=== PATIENT | male | born 1930 | race Caucasian/White ===

== ENCOUNTER 2017-08-30 08:01 | Inpatient (IN) | payer MEDICARE, BC ==
[2017-08-30] MEDS ORDERED: CEFTRIAXONE 1 GM/D5W RTU 1 GM/50 ML RTUPB IV ONE (08:11)
[2017-08-30] MEDS ORDERED: NORMAL SALINE 1000 ML 1,000 ML IV PRN ×3 (08:11→16:56)
--- NOTE | 2017-08-30 08:13 | ER Document Report ---
ED General - General Chief Complaint: Fever Stated Complaint: ALTERED MENTAL STATUS Time Seen by Provider: 08/30/17 08:05 Mode of Arrival: Medic Information source: Patient, Emergency Med Personnel Cannot obtain history due to: Altered mental status Notes: 87-year-old male presents from home altered. Patient was found confused yesterday unresponsive today by family. Upon EMSs arrival patient had a temperature 102.7, satting 83% on room air. They know family is vague on medical history. TRAVEL OUTSIDE OF THE [place] IN LAST 30 DAYS: No - HPI Onset: Yesterday Onset/Duration: Worse Quality of pain: No pain Severity: Severe Pain Level: Denies Associated symptoms: Fever, Shortness of breath, Weakness Exacerbated by: Denies Relieved by: Denies Similar symptoms previously: No Recently seen / treated by doctor: No - Related Data Allergies/Adverse Reactions: No Known Allergies Allergy (Verified 08/30/17 08:27) Past Medical History - Social History Smoking Status: Never Smoker Cigarette use (# per day): No Chew tobacco use (# tins/day): No Smoking Education Provided: No Family History: Reviewed & Not Pertinent - Past Medical History Cardiac Medical History: Reports: Hx Coronary Artery Disease, Hx Hypertension Denies: Hx Heart Attack Pulmonary Medical History: Denies: Hx Asthma, Hx Bronchitis, Hx COPD, Hx Pneumonia Neurological Medical History: Denies: Hx Cerebrovascular Accident, Hx Seizures Musculoskeltal Medical History: Reports Hx Arthritis Past Surgical History: Denies: Hx Pacemaker - Immunizations Hx Diphtheria, Pertussis, Tetanus Vaccination: Yes Review of Systems - Review of Systems Notes: REVIEW OF SYSTEMS: Per EMS and family CONSTITUTIONAL : Admits fever EENT: Denies eye, ear, throat, or mouth pain or symptoms. Denies nasal or sinus congestion or discharge. Denies throat, tongue, or mouth swelling or difficulty swallowing. CARDIOVASCULAR: Denies chest pain. Denies palpitations or racing or irregular heart beat. Denies ankle edema. RESPIRATORY: Admits cough shortness of breath GASTROINTESTINAL: Denies abdominal pain or distention. Denies nausea, vomiting , or diarrhea. Denies blood in vomitus, stools, or per rectum. Denies black, tarry stools. Denies constipation. GENITOURINARY: Denies difficulty urinating, painful urination, burning, frequency, blood in urine, or discharge. MUSCULOSKELETAL: Denies back or neck pain or stiffness. Denies joint pain or swelling. SKIN: Denies rash, lesions or sores. HEMATOLOGIC : Denies easy bruising or bleeding. LYMPHATIC: Denies swollen, enlarged glands. NEUROLOGICAL: Admits confusion PSYCHIATRIC: Denies anxiety or stress. Denies depression, suicidal ideation, or homicidal ideation. ALL OTHER SYSTEMS REVIEWED AND NEGATIVE. Dictation was performed using [employer] voice recognition software PHYSICAL EXAMINATION: GENERAL: Ill appearing pale male, febrile HEAD: Atraumatic, normocephalic. EYES: Pupils equal round and reactive to light, extraocular movements intact, sclera anicteric, conjunctiva are normal. ENT: Nares patent, oropharynx clear without exudates. Moist mucous membranes. NECK: Normal range of motion, supple without lymphadenopathy LUNGS: coarse breath sounds all throughout HEART: tachycardic ABDOMEN: Soft, nontender, nondistended abdomen. No guarding, no rebound. No masses appreciated. Musculoskeletal: Normal range of motion, no pitting or edema. No cyanosis. NEUROLOGICAL: Cranial nerves grossly intact. Normal speech, normal gait. Normal sensory, motor exams PSYCH: Normal mood, normal affect. SKIN: left lower extremity erythema, small open wound of the left medial, cool to touch Physical Exam - Vital signs Vitals: Temp 101.8 F H 08/30/17 08:01 Course - Re-evaluation Re-evalutation: 08/30/17 08:25 Patient is intermittently tachycardic febrile consistent with Sirs criteria, probable pneumonia as a source antibiotics septic workup pending 08/30/17 09:27 pt white count is 26, with acute renal failure, chest xray appears to have pneumonia, pt will be admitted ot the hospitalist service - Vital Signs Vital signs: Temp Pulse Resp BP Pulse Ox 101.8 F H 23 H 116/80 08/30/17 08:01 08/30/17 08:06 08/30/17 08:06 - Laboratory Result Diagrams: 08/30/17 08:10 08/30/17 08:10 Laboratory results interpreted by me: 08/30/17 08/30/17 08/30/17 08:10 08:10 08:10 WBC 25.8 H RBC 3.01 L Hgb 9.5 L Hct 27.9 L RDW 18.6 H Seg Neuts % (Manual) 98 H Band Neutrophils % 2 L Lymphocytes % (Manual) 0 L Monocytes % (Manual) 0 L Abs Neuts (Manual) 25.8 H Abs Lymphs (Manual) 0.0 L Abs Monocytes (Manual) 0.0 L PT 17.2 H Carbon Dioxide 19 L BUN 104 H Creatinine 3.64 H Est GFR ( Amer) 19 L Est GFR (Non-Af Amer) 16 L Glucose 153 H POC Glucose AST 140 H ALT 81 H Alkaline Phosphatase 132 H Urine Protein Urine Ascorbic Acid 08/30/17 08/30/17 08:12 08:36 WBC RBC Hgb Hct RDW Seg Neuts % (Manual) Band Neutrophils % Lymphocytes % (Manual) Monocytes % (Manual) Abs Neuts (Manual) Abs Lymphs (Manual) Abs Monocytes (Manual) PT Carbon Dioxide BUN Creatinine Est GFR ( Amer) Est GFR (Non-Af Amer) Glucose POC Glucose 183 H AST ALT Alkaline Phosphatase Urine Protein 100 H Urine Ascorbic Acid 40 H - Diagnostic Test Radiology reviewed: Image reviewed, Reports reviewed - EKG Interpretation by Al EKG shows normal: Sinus rhythm, Kulm, Intervals, QRS Complexes Rate: Tachycardia Critical Care Note - Critical Care Note Total time excluding time spent on procedures (mins): 34 Comments: 34 minutes of critical care time spent in direct contact evaluating and reevaluating the patient, treating symptoms, reviewing labs and studies and speaking with family and consultants excluding any procedures Discharge - Discharge Clinical Impression: Sepsis Qualifiers: Sepsis type: sepsis due to unspecified organism Qualified Code(s): A41.9 - Sepsis, unspecified organism Pneumonia Qualifiers: Pneumonia type: due to unspecified organism Laterality: left Lung location: lower lobe of lung Qualified Code(s): J18.1 - Lobar pneumonia, unspecified organism Acute renal failure Qualifiers: Acute renal failure type: unspecified Qualified Code(s): N17.9 - Acute kidney failure, unspecified Condition: Fair Disposition: ADMITTED INPATIENT Admitting Provider: Hospitalist Unit Admitted: [facility]
[2017-08-30 08:38] LABS: VENOUS BLOOD BASE EXCESS -3.9 mmol/L; VENOUS BLOOD HCO3 21.6 mmol/L (20-32); VENOUS BLOOD PCO2 41.4 mmHg (35-63); VENOUS BLOOD PH 7.34 (7.30-7.42)
[2017-08-30 08:42] LABS: HEMATOCRIT 27.9 % (37.9-51.0); HEMOGLOBIN 9.5 g/dL (13.5-17.0); MEAN CORPUSCULAR HEMOGLOBIN 31.7 pg (27.0-33.4); MEAN CORPUSCULAR HGB CONC 34.2 g/dL (32.0-36.0); MEAN CORPUSCULAR VOLUME 93 fl (80-97); PLATELET COUNT 165 10^3/uL (150-450); RED BLOOD COUNT 3.01 10^6/uL (4.35-5.55); RED CELL DISTRIBUTION WIDTH 18.6 % (11.5-14.0); WHITE BLOOD COUNT 25.8 10^3/uL (4.0-10.5)
[2017-08-30 08:52] LABS: INTERNATIONAL RATION (INR) 1.32; PROTHROMBIN TIME 17.2 SEC (11.4-15.4)
[2017-08-30 08:57] LABS: ALANINE AMINOTRANSFERASE 81 U/L (21-72); ALBUMIN 3.6 g/dL (3.5-5.0); ALKALINE PHOSPHATASE 132 U/L (38-126); ASPARTATE AMINO TRANSFERASE 140 U/L (17-59); BILIRUBIN,DIRECT 0.3 mg/dL (0.0-0.4); BILIRUBIN,TOTAL 0.7 mg/dL (0.2-1.3); BLOOD UREA NITROGEN 104 mg/dL (7-20); CALCIUM 8.5 mg/dL (8.4-10.2); CHLORIDE 102 mmol/L (98-107); GLUCOSE 153 mg/dL (75-110); POTASSIUM 4.4 mmol/L (3.6-5.0); TOTAL PROTEIN 6.6 g/dL (6.3-8.2)
[2017-08-30 08:58] LABS: ABSOLUTE NEUTROPHILS# (MANUAL) 25.8 10^3/uL (1.7-8.2); BAND NEUTROPHILS % (MANUAL) 2 % (3-5); BASOPHILS % (MANUAL) 0 % (0-2); EOSINOPHILS % (MANUAL) 0 % (0-6); LYMPHOCYTES % (MANUAL) 0 % (13-45); MONOCYTES % (MANUAL) 0 % (3-13); SEGMENTED NEUTROPHILS % (MAN) 98 % (42-78); TOTAL CELLS COUNTED 100
[2017-08-30 08:58] LABS: AMORPHOUS SEDIMENT,URINE TRACE /HPF; APPEARANCE,URINE SLIGHTLY-CLOUDY; BILIRUBIN,URINE NEGATIVE (NEGATIVE); GLUCOSE, URINE NEGATIVE (NEGATIVE); KETONES,URINE NEGATIVE (NEGATIVE); LEUKOCYTE ESTERASE,URINE NEGATIVE (NEGATIVE); NITRITE,URINE NEGATIVE (NEGATIVE); PROTEIN,URINE 100 mg/dL (NEGATIVE); URINE SPECIFIC GRAVITY 1.014; UROBILINOGEN,URINE NEGATIVE mg/dL (<2.0)
[2017-08-30 08:59] LABS: TOXIC GRANULATION SLIGHT; TOXIC VACUOLATION PRESENT
[2017-08-30 08:59] LABS: COLOR,URINE DARK YELLOW
[2017-08-30 09:00] LABS: ANISOCYTOSIS 2+; OVALOCYTES 1+; PLATELET COMMENT ADEQUATE; POIKILOCYTOSIS 1+; SCHISTOCYTES SLIGHT
[2017-08-30 09:06] LABS: CARBON DIOXIDE 19 mmol/L (22-30); SODIUM 139.6 mmol/L (137-145)
[2017-08-30 09:14] LABS: ANION GAP 19 (5-19)
--- NOTE | 2017-08-30 09:37 | RADIOLOGY REPORT (SQ) ---
EXAM DESCRIPTION: CHEST SINGLE VIEW COMPLETED DATE/TIME: 08/30/2017 9:03 am REASON FOR STUDY: bed 11 sepsis protocol COMPARISON: None. EXAM PARAMETERS: NUMBER OF VIEWS: One view. TECHNIQUE: Single frontal radiographic view of the chest acquired. RADIATION DOSE: NA LIMITATIONS: None FINDINGS: LUNGS AND PLEURA: No opacities, masses or pneumothorax. No pleural effusion. MEDIASTINUM AND HILAR STRUCTURES: Mild cardiomegaly. 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 Normal vasculature. BONES: Osteopenic, advanced arthritis right shoulder HARDWARE: None in the chest. OTHER: No other significant finding. IMPRESSION: No acute changes. Mild cardiomegaly, old sternotomy and CABG TECHNICAL DOCUMENTATION: JOB ID: [id number] [employer]- All Rights Reserved
[2017-08-30] MEDS ORDERED: ALBUTEROL SULFATE 0.083% NEB 2.5 MG/3 ML AMPUL NEB PRN (11:08)
[2017-08-30] MEDS ORDERED: ACETAMINOPHEN 325 MG TABLET PO PRN (11:15)
[2017-08-30] MEDS ORDERED: VANCOMYCIN HCL 0 MG in DEXTROSE 5%-WATER 250 ML IV NR (11:30)
--- NOTE | 2017-08-30 11:51 | PDOC H&P ---
History of Present Illness Admission Date/PCP: 08/30/17 09:52 MARISELA GLASS MD Patient complains of: Confusion, fever History of Present Illness: ASHLEY PIZARRO is a 87 year old male with a past medical history significant for hypertension, chronic anemia, BPH, spinal stenosis and peripheral neuropathy who presented to the emergency department by EMS this morning after his family members were unable to wake him. 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 The son reports that by yesterday evening, the patient was slightly confused and more forgetful than is his norm. This morning, the patient's son found him to be difficult to arouse, febrile, and with labored respirations. On retrospect, the patient's son does believe that the patient has had a slightly productive cough for approximately 1 week but has had no other complaints of dyspnea. Upon arrival to the emergency department he was found to have a temperature of 102.7, was hypoxic at 83% on room air, tachycardic and tachypneic. Initial evaluation revealed a WBC of 25.8, hemoglobin 9.5, and creatinine of 3.64. Checks x-ray revealed mild cardiomegaly and no acute processes. He is referred to the hospitalist service for admission. Past Medical History Cardiac Medical History: Reports: Coronary Artery Disease, Hypertension Denies: Myocardial Infarction Pulmonary Medical History: Denies: Asthma, Bronchitis, Chronic Obstructive Pulmonary Disease (COPD), Pneumonia EENT Medical History: Reports: None Neurological Medical History: Denies: Hemorrhagic CVA, Ischemic CVA, Seizures Endocrine Medical History: Reports: None Renal/ Medical History: Reports: None Malignancy Medical History: Reports: None GI Medical History: Reports: None Musculoskeltal Medical History: Reports: Arthritis Skin Medical History: Reports: None Psychiatric Medical History: Reports: None Traumatic Medical History: Reports: None Hematology: Reports: Anemia Infectious Medical History: Reports: None Past Surgical History Past Surgical History: Reports: Coronary Artery Bypass Graft, Orthopedic Surgery - R knee, bilateral hip Denies: Pacemaker Social History Information Source: Relative Lives with: Spouse/Significant other Smoking Status: Former Smoker Frequency of Alcohol Use: None Hx Recreational Drug Use: No Drugs: None Hx Prescription Drug Abuse: No - Advance Directive Resuscitation Status: Full Code Family History Family History: Reviewed & Not Pertinent Parental Family History Reviewed: Yes Children Family History Reviewed: Yes Sibling(s) Family History Reviewed.: Yes Medication/Allergy Home Medications: Amlodipine Besylate [Norvasc 5 mg Tablet] 5 mg PO DAILY 08/30/17 Aspirin [Adult Low Dose Aspirin EC] 81 mg PO DAILY 08/30/17 Carvedilol [Coreg 6.25 mg Tablet] 6.25 mg PO BID 08/30/17 Cetirizine HCl [Zyrtec 10 mg Tablet] 10 mg PO DAILY 08/30/17 Diclofenac Sodium [Voltaren] 75 mg PO DAILY 08/30/17 Finasteride [Proscar 5 mg Tablet] 5 mg PO DAILY 08/30/17 Furosemide [Lasix 40 mg Tablet] 40 mg PO DAILYP PRN 08/30/17 Gabapentin [Neurontin 100 mg Capsule] 100 mg PO Q8 08/30/17 Lisinopril [Zestril] 40 mg PO DAILY 08/30/17 Tamsulosin HCl [Flomax] 0.4 mg PO DAILY 08/30/17 Tramadol HCl [Ultram 50 mg Tablet] 50 mg PO Q6HP PRN 08/30/17 Allergies/Adverse Reactions: No Known Allergies Allergy (Verified 08/30/17 08:27) Review of Systems Review of Systems: Per family Constitutional: PRESENT: as per HPI, fatigue, fever(s), weakness. ABSENT: chills, headache(s), weight gain, weight loss Eyes: ABSENT: visual disturbances Ears: ABSENT: hearing changes Cardiovascular: ABSENT: chest pain, dyspnea on exertion, edema, orthropnea, palpitations Respiratory: PRESENT: cough. ABSENT: hemoptysis Gastrointestinal: ABSENT: abdominal pain, constipation, diarrhea, hematemesis, hematochezia, nausea, vomiting Genitourinary: ABSENT: dysuria, hematuria Musculoskeletal: ABSENT: joint swelling Integumentary: ABSENT: rash, wounds Neurological: PRESENT: confusion. ABSENT: abnormal gait, abnormal speech, dizziness, focal weakness, syncope Psychiatric: ABSENT: anxiety, depression, homidical ideation, suicidal ideation Endocrine: ABSENT: cold intolerance, heat intolerance, polydipsia, polyuria Hematologic/Lymphatic: ABSENT: easy bleeding, easy bruising Physical Exam Vital Signs: Temp Pulse Resp BP Pulse Ox 100.4 F 88 21 H 103/48 L 98 08/30/17 10:42 08/30/17 08:20 08/30/17 11:03 08/30/17 11:03 08/30/17 11:03 General appearance: PRESENT: no acute distress, well-developed, well-nourished Head exam: PRESENT: atraumatic, normocephalic Eye exam: PRESENT: conjunctiva pink, EOMI, PERRLA. ABSENT: scleral icterus Ear exam: PRESENT: normal external ear exam Mouth exam: PRESENT: moist, tongue midline Neck exam: ABSENT: carotid bruit, JVD, lymphadenopathy, thyromegaly Respiratory exam: PRESENT: clear to auscultation katt, rhonchi - Coarse rhonchi throughout, tachypnea, other - Currently on supplemental oxygen via nasal cannula.. ABSENT: rales, wheezes Cardiovascular exam: PRESENT: RRR, tachycardia. ABSENT: diastolic murmur, rubs , systolic murmur Pulses: PRESENT: normal dorsalis pedis pul Vascular exam: PRESENT: normal capillary refill GI/Abdominal exam: PRESENT: normal bowel sounds, soft. ABSENT: distended, guarding, mass, organolmegaly, rebound, tenderness Rectal exam: PRESENT: deferred Extremities exam: PRESENT: full ROM. ABSENT: calf tenderness, clubbing, pedal edema Neurological exam: PRESENT: other - Arousable; does not answer questions or follow commands at this time.. ABSENT: motor sensory deficit Psychiatric exam: ABSENT: homicidal ideation, suicidal ideation Skin exam: PRESENT: dry, erythema - Left lower extremity, warm. ABSENT: cyanosis, intact - Venous stasis ulcers to left lower extremity, rash Results Impressions: Chest X-Ray 08/30/17 08:03 IMPRESSION: No acute changes. Mild cardiomegaly, old sternotomy and CABG Assessment & Plan - Diagnosis (1) Sepsis Qualifiers: Sepsis type: sepsis due to unspecified organism Qualified Code(s): A41.9 - Sepsis, unspecified organism Is this a current diagnosis for this admission?: Yes Plan: Sepsis as evidenced by leukocytosis (25.8), tachycardia (102), tachypnea (23), fever (102.7), and hypotension (94/69) with evidence of cellulitis to left lower extremity and probable pneumonia. The patient will be admitted to [facility] on continuous cardiac telemetry and pulse oximetry. Blood and urine cultures have been obtained. Culture pending. The patient will be empirically started on vancomycin and Zosyn for coverage of pneumonia and cellulitis secondary to chronic venous stasis ulcerations to the left lower extremity. He will receive IV fluid resuscitation. (2) Cellulitis of left lower extremity Is this a current diagnosis for this admission?: Yes Plan: Cellulitis is noted to the left lower extremity related to chronic venous stasis ulcerations. He is noted to have multiple shallow ulcerations to the left lower leg and foot, additionally, he is noted to have small fluid-filled blisters to the left leg. There is +1 pitting edema to the extremity. We will obtain a venous Doppler ultrasound to rule out DVT. He is being empirically placed on vancomycin and Zosyn. We will keep leg elevated. (3) Acute renal failure Qualifiers: Acute renal failure type: unspecified Qualified Code(s): N17.9 - Acute kidney failure, unspecified Is this a current diagnosis for this admission?: Yes Plan: Likely prerenal secondary to intravascular volume depletion in the setting of sepsis. Baseline creatinine of 1.16. The patient is receiving IV fluid resuscitation per sepsis protocols. Will continue to monitor creatinine via serial BMPs. The patient will receive renally dosed vancomycin per pharmacy. Avoid all other nephrotoxic medications. (4) Pneumonia Qualifiers: Pneumonia type: due to unspecified organism Qualified Code(s): J18.1 - Lobar pneumonia, unspecified organism Is this a current diagnosis for this admission?: Yes Plan: Possible pneumonia based on patient history of productive cough, dyspnea, fever. Chest x-ray demonstrated mild cardiomegaly and no acute processes. Likely, pneumonia was not visible secondary to dehydration in the setting of sepsis. The patient will receive vancomycin and Zosyn. He is placed on scheduled duo nebs with albuterol nebulizer treatments as needed. Mucinex twice daily. Supplemental oxygen as needed to keep oxygen saturations greater than 92%. (5) Acute respiratory failure with hypoxia Is this a current diagnosis for this admission?: Yes Plan: The patient was noted to be hypoxic with a saturation of 83% while on room air with tachypnea and tachycardia. His respiratory status has improved and is now stable with supplemental oxygen via nasal cannula. We will continue supportive measures and plan as above. (6) Hypertension Is this a current diagnosis for this admission?: Yes Plan: Hypotensive at current secondary to sepsis. We will continue patient's home medications: Amlodipine and carvedilol with holding parameters. (7) BPH (benign prostatic hyperplasia) Is this a current diagnosis for this admission?: Yes Plan: We will continue home medications: Flomax and finasteride. 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 Plan as above. - Time Time Spent: 50 to 70 Minutes Medications reviewed and adjusted accordingly: Yes - Inpatient Certification Based on my medical assessment, after consideration of the patient's comorbidities, presenting symptoms, or acuity I expect that the services needed warrant INPATIENT care.: Yes I certify that my determination is in accordance with my understanding of Medicare's requirements for reasonable and necessary INPATIENT services [42 CFR 412.3e].: Yes Medical Necessity: Need Close Monitoring Due to Risk of Patient Decompensation, Need For IV Fluids, Need for IV Antibiotics
[2017-08-30] MEDS ORDERED: PIPERACILLIN SODIUM/TAZOBACTAM 3.375 GM in NORMAL SALINE 100 ML IV SCH (12:00)
--- NOTE | 2017-08-30 13:14 | EKG REPORT ---
SEVERITY:- ABNORMAL ECG - SINUS RHYTHM PROBABLE LEFT ATRIAL ABNORMALITY RIGHT BUNDLE BRANCH BLOCK : Confirmed by: Austin Chase MD 30-Aug-2017 13:13:42
[2017-08-30] MEDS ORDERED: VANCOMYCIN HCL 1,000 MG in DEXTROSE 5%-WATER 250 ML IV SCH (14:00)
--- NOTE | 2017-08-30 14:42 | RADIOLOGY REPORT (SQ) ---
EXAM DESCRIPTION: VENOUS UNILATERAL LOWER COMPLETED DATE/TIME: 08/30/2017 2:08 pm REASON FOR STUDY: LLE EDEMA COMPARISON: None. TECHNIQUE: Dynamic and static solis scale and color images acquired of the left leg venous system. Se lected spectral images acquired with additional compression and augmentation maneuvers. The contralat eral common femoral vein and saphenofemoral junction were also imaged. Images stored on PACS. LIMITATIONS: None. FINDINGS: COMMON FEMORAL: Normal phasicity, compression and augmentation. No visualized echogenic ma terial on solis scale. No defects on color images. FEMORAL: Normal compression and augmentation. No visualized echogenic material on solis scale. No defe cts on color images. POPLITEAL: Normal compression, augmentation. No visualized echogenic material on solis scale. No defec ts on color images. CALF VESSELS: Normal compression, augmentation. No visualized echogenic material on solis scale. No de fects on color images. GSV and SSV: GSV harvested. SSV patent. ANY DEEP VENOUS INSUFFICIENCY: Not evaluated. ANY EVIDENCE OF POPLITEAL CYST: 3.1 x 1.3 cm OTHER: No other significant finding. CONTRALATERAL COMMON FEMORAL VEIN AND SAPHENOFEMORAL JUNCTION: Normal phasicity, compression and augmentation. No visualized echogenic material on solis scale. No de fects on color images. IMPRESSION: NO EVIDENCE DVT OR SVT IN THE LEFT LEG. TECHNICAL DOCUMENTATION: JOB ID: [id number] [employer]- All Rights Reserved
[2017-08-30] MEDS: IPRATROPIUM/ALBUTEROL 0.5-2.5 MG/3 ML AMPUL NEB SCH (16:09)
[2017-08-30] MEDS: PIPERACILLIN SODIUM/TAZOBACTAM 2.25 GM in NORMAL SALINE 50 ML IV SCH (17:26)
[2017-08-30] MEDS ORDERED: CARVEDILOL 6.25 MG TABLET PO SCH (18:00)
[2017-08-30] MEDS ORDERED: GUAIFENESIN 600 MG TABLET.SA PO SCH (22:00)
[2017-08-30] MEDS: ACETAMINOPHEN 325 MG SUPP.RECT PR PRN (22:50)
[2017-08-31] MEDS: IPRATROPIUM/ALBUTEROL 0.5-2.5 MG/3 ML AMPUL NEB SCH ×3 (00:04→15:58)
[2017-08-31] MEDS: PIPERACILLIN SODIUM/TAZOBACTAM 2.25 GM in NORMAL SALINE 50 ML IV SCH ×3 (01:24→17:48)
[2017-08-31 06:42] LABS: HEMATOCRIT 24.7 % (37.9-51.0); HEMOGLOBIN 8.5 g/dL (13.5-17.0); MEAN CORPUSCULAR HGB CONC 34.5 g/dL (32.0-36.0); MEAN CORPUSCULAR VOLUME 93 fl (80-97); PLATELET COUNT 125 10^3/uL (150-450); RED BLOOD COUNT 2.66 10^6/uL (4.35-5.55); RED CELL DISTRIBUTION WIDTH 18.3 % (11.5-14.0); WHITE BLOOD COUNT 17.9 10^3/uL (4.0-10.5)
[2017-08-31 06:44] LABS: ANION GAP 15 (5-19); BLOOD UREA NITROGEN 107 mg/dL (7-20); CALCIUM 7.6 mg/dL (8.4-10.2); CARBON DIOXIDE 16 mmol/L (22-30); CHLORIDE 111 mmol/L (98-107); GLUCOSE 154 mg/dL (75-110); POTASSIUM 3.9 mmol/L (3.6-5.0); SODIUM 142.1 mmol/L (137-145)
[2017-08-31] MEDS: AMLODIPINE BESYLATE 5 MG TABLET PO SCH (09:52)
[2017-08-31] MEDS: CETIRIZINE 10 MG TABLET PO SCH (09:52)
[2017-08-31] MEDS: FINASTERIDE 5 MG TABLET PO SCH (09:52)
[2017-08-31] MEDS: CARVEDILOL 6.25 MG TABLET PO SCH ×2 (09:53→22:18)
[2017-08-31] MEDS: ASPIRIN 81 MG TABLET, ENT COATED PO SCH (09:53)
[2017-08-31] MEDS: TAMSULOSIN HCL 0.4 MG CAP.SR.24H PO SCH (09:53)
[2017-08-31] MEDS: GUAIFENESIN 600 MG TABLET.SA PO SCH ×2 (09:53→22:18)
[2017-08-31] MEDS: ENOXAPARIN SODIUM INJ 30 MG/0.3 ML DISP.SYRIN SUBCUT SCH (09:54)
--- NOTE | 2017-08-31 10:31 | PDOC PROGRESS REPORT ---
Subjective Progress Note for:: 08/31/17 Subjective:: Pt is seen on morning rounds as a follow up of sepsis secondary to presumed pneumonia and cellulitis. The patient is found in upright in bed comfortably. He is alert and awake this morning. He tells me that he is in a hospital in [place] but easily corrects to [place]. He does confirm that he has had generalized fatigue, body aches, shortness of breath, and a productive cough for approximately 1 week. He also complains of LLE edema and pain. He was assisted to sitting upright for a drink of water and was observed to have immediate signs worrisome for aspiration. He reports that he often "gets a little choked up." He expresses appreciation for his care and denies questions or concerns at this time. Reason For Visit: PNEUMONIA Physical Exam Vital Signs: Temp Pulse Resp BP Pulse Ox 98.2 F 87 16 119/51 L 98 08/31/17 04:13 08/31/17 08:49 08/31/17 08:49 08/31/17 08:21 08/31/17 08:49 Pulse Oximeter Continuous Start: 08/30/17 11: 40 Freq: RTQ4 Status: Active Document 08/31/17 08:49 [facility] (Rec: 08/31/17 09:35 [facility] [email or web address]) Pulse Oximetry Assessment Oxygen Saturation (92-100) 98 Oxygen Flow Rate (L/min) 2 Oxygen Delivery Method Nasal Cannula Fraction of Inspired Oxygen (FIO2) 28 Equipment Usage Equipment in Use Continuous SpO2 Machine # [id number] Intake & Output 08/30/17 08/31/17 09/01/17 06:59 06:59 06:59 Intake Total 1650 Output Total 925 Balance 725 Weight 88.7 kg General appearance: PRESENT: no acute distress, well-developed, well-nourished Head exam: PRESENT: atraumatic, normocephalic Eye exam: PRESENT: conjunctiva pink, EOMI, PERRLA. ABSENT: scleral icterus Ear exam: PRESENT: normal external ear exam Mouth exam: PRESENT: dry mucosa, tongue midline Neck exam: ABSENT: carotid bruit, JVD, lymphadenopathy, thyromegaly Respiratory exam: PRESENT: clear to auscultation katt, rhonchi - throughout, symmetrical, unlabored. ABSENT: rales, wheezes Cardiovascular exam: PRESENT: RRR, +S1, +S2. ABSENT: diastolic murmur, rubs, systolic murmur, tachycardia Pulses: PRESENT: normal dorsalis pedis pul Vascular exam: PRESENT: normal capillary refill, pallor - Waxy appearance of the left great toe; capillary refill is >3 sec GI/Abdominal exam: PRESENT: normal bowel sounds, soft. ABSENT: distended, guarding, mass, organolmegaly, rebound, tenderness Rectal exam: PRESENT: deferred Extremities exam: PRESENT: full ROM, +1 edema - BLE; improved from yesterday. ABSENT: calf tenderness, clubbing, pedal edema Neurological exam: PRESENT: alert, awake, oriented to person, CN II-XII grossly intact, other - Pleasantly confused, reorientates easily. ABSENT: oriented to place, oriented to time, oriented to situation, motor sensory deficit Psychiatric exam: PRESENT: appropriate affect, normal mood. ABSENT: homicidal ideation, suicidal ideation Skin exam: PRESENT: dry, intact, pallor, warm. ABSENT: cyanosis, rash Results Laboratory Results: 08/31/17 06:04 08/31/17 06:04 08/31/17 08/31/17 06:04 06:04 WBC 17.9 H RBC 2.66 L Hgb 8.5 L Hct 24.7 L MCV 93 MCH 32.0 MCHC 34.5 RDW 18.3 H Plt Count 125 L Sodium 142.1 Potassium 3.9 Chloride 111 H Carbon Dioxide 16 L Anion Gap 15 BUN 107 H Creatinine 3.28 H Est GFR ( Amer) 22 L Est GFR (Non-Af Amer) 18 L Glucose 154 H Calcium 7.6 L Impressions: Venous Doppler Study 08/30/17 00:00 IMPRESSION: NO EVIDENCE DVT OR SVT IN THE LEFT LEG. Chest X-Ray 08/30/17 08:03 IMPRESSION: No acute changes. 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 The pt is alert, though disorientated. The patient has been admitted to [facility] on continuous cardiac telemetry and pulse oximetry. 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 The overall appearance of the LLE is improved; however, the Lt great toe is waxy in appearance and worrisome for chronic venous stasis ulceration w/ osteomyelitis. We will continue IV fluids. (2) Cellulitis of left lower extremity Is this a current diagnosis for this admission?: Yes Plan: Improved appearance. Cellulitis is noted to the left lower extremity related to chronic venous stasis ulcerations. He is noted to have multiple shallow ulcerations to the left lower leg and foot and has small fluid-filled blisters to the left leg. Edema has improved. The Lt great toe is waxy in appearance, cool to touch, and has poor capillary refill. I am concerned about presenting necrosis and/or osteomyelitis related to a chronic wound on the medial portion of the PIP. Will obtain MRI. Venous Doppler ultrasound ruled out DVT. He is currently on vancomycin and Zosyn. We will keep leg elevated. (3) Acute renal failure Qualifiers: Acute renal failure type: unspecified Qualified Code(s): N17.9 - Acute kidney failure, unspecified Is this a current diagnosis for this admission?: Yes Plan: Slight improvement today. Likely prerenal secondary to intravascular volume depletion in the setting of sepsis. Baseline creatinine of 1.16. The patient is receiving IV fluid resuscitation per sepsis protocols. Will continue to monitor creatinine via serial BMPs. The patient will receive renally dosed vancomycin per pharmacy. Avoid all other nephrotoxic medications. (4) Pneumonia Qualifiers: Pneumonia type: due to unspecified organism Qualified Code(s): J18.1 - Lobar pneumonia, unspecified organism Is this a current diagnosis for this admission?: Yes Plan: Possible pneumonia based on patient history of productive cough, dyspnea, fever. Chest x-ray demonstrated mild cardiomegaly and no acute processes. Likely, pneumonia was not visible secondary to dehydration in the setting of sepsis. The patient will receive vancomycin and Zosyn. He is placed on scheduled duo nebs with albuterol nebulizer treatments as needed. Mucinex twice daily. Supplemental oxygen as needed to keep oxygen saturations greater than 92%. (5) Acute respiratory failure with hypoxia Is this a current diagnosis for this admission?: Yes Plan: Improved; he is now maintaining oxygen saturations on supplemental oxygen via nasal canula. The patient was noted to be hypoxic with a saturation of 83% while on room air with tachypnea and tachycardia. We will continue supportive measures and plan as above. (6) Hypertension Is this a current diagnosis for this admission?: Yes Plan: Hypotensive at current secondary to sepsis. We will continue patient's home medications: Amlodipine and carvedilol with holding parameters. (7) BPH (benign prostatic hyperplasia) Is this a current diagnosis for this admission?: Yes Plan: We will continue home medications: Flomax and finasteride. 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 Plan as above. - Time Time Spent with patient: 25-34 minutes Medications reviewed and adjusted accordingly: Yes
[2017-08-31] MEDS ORDERED: NORMAL SALINE 1000 ML 500 ML IV ONE (11:03)
[2017-08-31] MEDS ORDERED: DIAZEPAM 2 MG TABLET PO PRN (11:04)
[2017-08-31] MEDS ORDERED: HALOPERIDOL LACTATE INJ 5 MG/1 ML VIAL IV PRN (11:41)
[2017-08-31] MEDS ORDERED: GLUCAGON,HUMAN RECOMB 1 MG INJ SUBCUT PRN (15:15)
[2017-08-31] MEDS ORDERED: DEXTROSE 50%-WATER 25 GM/50 ML DISP.SYRIN IV PRN ×2 (15:15)
[2017-08-31] MEDS ORDERED: DEXTROSE 40% GEL 15 GM TUBE PO PRN ×2 (15:15)
[2017-08-31 15:56] LABS: ARTERIAL BLOOD H2CO3 0.89 mmol/L (1.05-1.35); ARTERIAL BLOOD HCO3 17.2 mmol/L (20-26); ARTERIAL BLOOD O2 SATURATION 99.5 % (94-98); ARTERIAL BLOOD PCO2 29.7 mmHg (35-45); ARTERIAL BLOOD PH 7.38 (7.35-7.45); ARTERIAL BLOOD PO2 220.3 mmHg (80-100); ARTERIAL BLOOD TOTAL CO2 18.1 mmol/L (23-27)
[2017-08-31 15:57] LABS: ARTERIAL BLOOD FIO2 100%
--- NOTE | 2017-08-31 17:52 | RADIOLOGY REPORT (SQ) ---
EXAM DESCRIPTION: CT CHEST WITHOUT COMPLETED DATE/TIME: 08/31/2017 5:30 pm REASON FOR STUDY: dyspnea, cough, ? aspirtion COMPARISON: Chest x-ray 08/30/2017 TECHNIQUE: CT scan performed of the chest without intravenous contrast. Images reviewed with lung, soft tissue and bone windows. Reconstructed coronal and sagittal MPR images reviewed. All images st ored on PACS. All CT scanners at this facility use dose modulation, iterative reconstruction, and/or weight based d osing when appropriate to reduce radiation dose to as low as reasonably achievable (ALARA). [facility]: Dose Right [facility]: CareDose [facility]: Dose Right [facility]: Teradose 4D [facility]: [employer] Technologies RADIATION DOSE: CT Rad equipment meets quality standard of care and radiation dose reduction techniq ues were employed. CTDIvol: 24.4 mGy. DLP: 1042 mGy-cm. mGy. LIMITATIONS: No technical limitations. FINDINGS: LUNGS AND PLEURA: Mild subsegmental atelectasis in the right lower lobe posteriorly. Mini mal right pleural effusion. HILAR AND MEDIASTINAL STRUCTURES: No identified masses or abnormal nodes. No obvious aneurysm. HEART AND VASCULAR STRUCTURES: No aneurysm. No pericardial effusion. Extensive coronary atheroscler osis. UPPER ABDOMEN: Cholelithiasis. Extensive perinephric stranding. THYROID AND OTHER SOFT TISSUES: No masses. No adenopathy. BONES: No significant finding. HARDWARE: Sternotomy wires. Surgical clips. OTHER: No other significant findings. IMPRESSION: Minimal right pleural effusion. Mild subsegmental atelectasis. Coronary atherosclerosi s. Perinephric stranding. Is there any clinical evidence pyelonephritis? Cholelithiasis. TECHNICAL DOCUMENTATION: JOB ID: [id number] Quality ID # [id number]: Final reports with documentation of one or more dose reduction techniques (e.g., Au tomated exposure control, adjustment of the mA and/or kV according to patient size, use of iterative reconstruction technique) 2010 [employer]- All Rights Reserved
--- NOTE | 2017-08-31 17:59 | EKG REPORT ---
SEVERITY:- ABNORMAL ECG - ATRIAL FIBRILLATION, V-RATE 70-94 RIGHT BUNDLE BRANCH BLOCK : Confirmed by: Austin Chase MD 31-Aug-2017 17:58:42
[2017-09-01] MEDS: IPRATROPIUM/ALBUTEROL 0.5-2.5 MG/3 ML AMPUL NEB SCH ×3 (00:04→16:16)
[2017-09-01] MEDS: PIPERACILLIN SODIUM/TAZOBACTAM 2.25 GM in NORMAL SALINE 50 ML IV SCH ×3 (01:37→17:29)
[2017-09-01] MEDS: NORMAL SALINE 1000 ML 1,000 ML IV PRN ×2 (03:25→16:57)
[2017-09-01 05:44] LABS: HEMATOCRIT 27.7 % (37.9-51.0); HEMOGLOBIN 9.4 g/dL (13.5-17.0); MEAN CORPUSCULAR HEMOGLOBIN 31.2 pg (27.0-33.4); MEAN CORPUSCULAR HGB CONC 33.8 g/dL (32.0-36.0); MEAN CORPUSCULAR VOLUME 92 fl (80-97); PLATELET COUNT 170 10^3/uL (150-450); RED CELL DISTRIBUTION WIDTH 18.5 % (11.5-14.0); WHITE BLOOD COUNT 16.1 10^3/uL (4.0-10.5)
[2017-09-01 05:49] LABS: ANION GAP 16 (5-19); BLOOD UREA NITROGEN 108 mg/dL (7-20); CARBON DIOXIDE 15 mmol/L (22-30); CHLORIDE 116 mmol/L (98-107); GLUCOSE 152 mg/dL (75-110); POTASSIUM 3.8 mmol/L (3.6-5.0); SODIUM 146.6 mmol/L (137-145)
[2017-09-01] MEDS: ENOXAPARIN SODIUM INJ 30 MG/0.3 ML DISP.SYRIN SUBCUT SCH (10:13)
[2017-09-01] MEDS: TAMSULOSIN HCL 0.4 MG CAP.SR.24H PO SCH (10:22)
[2017-09-01] MEDS: FINASTERIDE 5 MG TABLET PO SCH (10:22)
[2017-09-01] MEDS: CARVEDILOL 6.25 MG TABLET PO SCH ×2 (10:22→22:19)
[2017-09-01] MEDS: CETIRIZINE 10 MG TABLET PO SCH (10:22)
[2017-09-01] MEDS: AMLODIPINE BESYLATE 5 MG TABLET PO SCH (10:22)
[2017-09-01] MEDS: GUAIFENESIN 600 MG TABLET.SA PO SCH ×2 (10:22→22:19)
[2017-09-01] MEDS: ASPIRIN 81 MG TABLET, ENT COATED PO SCH (10:22)
[2017-09-01] MEDS ORDERED: VANCOMYCIN HCL 1,000 MG in DEXTROSE 5%-WATER 250 ML IV ONE (12:30)
--- NOTE | 2017-09-01 13:50 | XCELERA REPORT ---
[address] [address] Transthoracic Echocardiogram Report Name: ASHLEY PIZARRO Age: 87 yrs Gender: Male : 1930 Patient Status: Inpatient Patient Location: [address] [place] [address] Study Date: 09/01/2017 11:04 AM Height: 72 in Weight: 195 lb BSA: 2.1 m2 Procedure: A two-dimensional transthoracic echocardiogram with color flow and Doppler was performed. Study Quality: Technically suboptimal. The study was technically difficult with many images being suboptimal in quality. Reason For Study: CHF exacerbation/sepsis History: CHF exacerbation/sepsis. Ordering Physician: NICHOLAS MCMAHON Performed By: Cailin Vidal Interpretation Summary The left ventricle is normal in size. There is normal left ventricular wall thickness. LV EF is 60% Left ventricular systolic function is normal. The left ventricular wall motion is normal. There is no thrombus. The right ventricle is not well visualized secondary to technical limitations Right atrium not well visualized secondary to technical limitations The left atrial size is normal. There is no evidence of mitral valve prolapse. There is no vegetation seen on the mitral valve. There is no mitral valve stenosis. There is a trace to mild amount of mitral regurgitation There is no aortic valvular vegetation. There is aortic Sclerosis without stenosis. No aortic regurgitation is present. There is no tricuspid stenosis. There is a mild amount of tricuspid regurgitation There is mild pulmonary hypertension by echo RVSP is 46 mm of hg , with RA mean of 10. There is no pericardial effusion. MMode/2D Measurements & Calculations RVDd: 4.6 cm LVIDd: 4.6 cm FS: 29.3 % Ao root diam: 2.8 cm IVSd: 0.98 cm LVIDs: 3.3 cm EDV(Teich): 97.8 ml LVPWd: 0.96 cm ESV(Teich): 42.9 ml Ao root area: 5.9 cm2 EF(Teich): 56.2 % LA dimension: 3.7 cm Doppler Measurements & Calculations MV E max desean: MV P1/2t max desean: Ao V2 max: LV V1 max P.4 cm/sec 130.3 cm/sec 178.1 cm/sec 3.1 mmHg MV P1/2t: 64.9 msec Ao max PG: LV V1 max: 12.7 mmHg 88.4 cm/sec MVA(P1/2t): 3.4 cm2 MV dec slope: 588.3 cm/sec2 PA V2 max: TR max desean: 87.4 cm/sec 300.7 cm/sec PA max P.1 mmHgTR max P.2 mmHg Left Ventricle The left ventricle is normal in size. There is normal left ventricular wall thickness. LV EF is 60%. Left ventricular systolic function is normal. LV diastolic function could not be adequately assessed due to atrial fibrilation. The left ventricular wall motion is normal. There is no thrombus. Right Ventricle The right ventricle is not well visualized secondary to technical limitations. Atria Right atrium not well visualized secondary to technical limitations. The left atrial size is normal. Mitral Valve There is mild mitral leaflet calcification. There is no evidence of mitral valve prolapse. There is no vegetation seen on the mitral valve. There is no mitral valve stenosis. There is a trace to mild amount of mitral regurgitation. Aortic Valve There is no aortic valvular vegetation. There is aortic Sclerosis without stenosis. No aortic regurgitation is present. Tricuspid Valve There is no tricuspid stenosis. There is a mild amount of tricuspid regurgitation. There is mild pulmonary hypertension by echo. RVSP is 46 mm of hg , with RA mean of 10. Pulmonic Valve There is no pulmonic valvular stenosis. There is no pulmonic valvular regurgitation. Great Vessels The aortic root is normal size. Effusions There is no pericardial effusion. : NICHOLAS MCMAHON > Katelyn Lopez
--- NOTE | 2017-09-01 14:10 | PDOC PROGRESS REPORT ---
Subjective Progress Note for:: 09/01/17 Subjective:: Pt is seen on morning rounds as a follow up of sepsis secondary to presumed pneumonia and cellulitis. The patient is resting in bed on supplemental oxygen via nasal cannula. He does wake briefly after a sternal rub and briefly answers questions. He denies chest pain, difficulty breathing, and cough. The patient's son is present for the exam. All questions and concerns were addressed. Reason For Visit: PNEUMONIA Physical Exam Vital Signs: Temp Pulse Resp BP Pulse Ox 97.5 F 90 20 155/74 H 100 09/01/17 12:08 09/01/17 12:08 09/01/17 12:08 09/01/17 12:08 09/01/17 12:08 Pulse Oximeter Continuous Start: 08/30/17 11: 40 Freq: RTQ4 Status: Active Document 09/01/17 12:00 [facility] (Rec: 09/01/17 12:04 [facility] [email or web address]) Pulse Oximetry Assessment Oxygen Saturation (92-100) 100 Oxygen Flow Rate (L/min) 2 Oxygen Delivery Method Nasal Cannula Equipment Usage Equipment in Use Continuous SpO2 Machine # [id number] Intake & Output 08/31/17 09/01/17 09/02/17 06:59 06:59 06:59 Intake Total 1650 3210 Output Total 925 1725 425 Balance 725 1485 -425 Weight 88.7 kg 88.6 kg General appearance: PRESENT: no acute distress, well-developed, well-nourished, other - acutely ill appearing Head exam: PRESENT: atraumatic, normocephalic Eye exam: PRESENT: conjunctiva pink, EOMI, PERRLA. ABSENT: scleral icterus Ear exam: PRESENT: normal external ear exam Mouth exam: PRESENT: moist, tongue midline Neck exam: ABSENT: carotid bruit, JVD, lymphadenopathy, thyromegaly Respiratory exam: PRESENT: crackles - Bibasilar, symmetrical, tachypnea, unlabored. ABSENT: rales, rhonchi, wheezes Cardiovascular exam: PRESENT: RRR, other - +JVD. ABSENT: diastolic murmur, rubs , systolic murmur Pulses: PRESENT: normal dorsalis pedis pul Vascular exam: PRESENT: normal capillary refill GI/Abdominal exam: PRESENT: normal bowel sounds, soft. ABSENT: distended, guarding, mass, organolmegaly, rebound, tenderness Rectal exam: PRESENT: deferred Extremities exam: PRESENT: full ROM. ABSENT: calf tenderness, clubbing, pedal edema Neurological exam: PRESENT: oriented to place, other - Arousable. Orientated to self.. ABSENT: motor sensory deficit Psychiatric exam: PRESENT: normal mood. ABSENT: homicidal ideation, suicidal ideation Skin exam: PRESENT: dry, erythema - LLE, warm, other - Waxy appearance of Lt great toe; poor capillary refill. ABSENT: cyanosis, intact, rash Results Laboratory Results: 09/01/17 04:55 09/01/17 04:55 08/31/17 09/01/17 09/01/17 15:40 04:55 04:55 WBC 16.1 H RBC 3.00 L Hgb 9.4 L Hct 27.7 L MCV 92 MCH 31.2 MCHC 33.8 RDW 18.5 H Plt Count 170 Carbonic Acid 0.89 L HCO3/H2CO3 Ratio 19:1 ABG pH 7.38 ABG pCO2 29.7 L ABG pO2 220.3 H ABG HCO3 17.2 L ABG O2 Saturation 99.5 H ABG Base Excess -7.0 FiO2 100% Sodium 146.6 H Potassium 3.8 Chloride 116 H Carbon Dioxide 15 L Anion Gap 16 BUN 108 H Creatinine 3.07 H Est GFR ( Amer) 23 L Est GFR (Non-Af Amer) 19 L Glucose 152 H Calcium 8.0 L Impressions: Venous Doppler Study 08/30/17 00:00 IMPRESSION: NO EVIDENCE DVT OR SVT IN THE LEFT LEG. Chest X-Ray 08/30/17 08:03 IMPRESSION: No acute changes. 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 Mild subsegmental atelectasis. Coronary atherosclerosis. Perinephric stranding. Is there any clinical evidence pyelonephritis? Cholelithiasis. Assessment & Plan - Diagnosis (1) Sepsis Qualifiers: Sepsis type: sepsis due to unspecified organism Qualified Code(s): A41.9 - Sepsis, unspecified organism Is this a current diagnosis for this admission?: Yes Plan: Improving; leukocytosis is trending down, his blood pressures are stable and he is no longer tachycardic. The pt is arousable. The patient has been admitted to [facility] on continuous cardiac telemetry and pulse oximetry. Blood cultures: S. aureus Urine culture: No growth at 2 days The patient will continue on vancomycin and Zosyn for coverage of pneumonia and cellulitis secondary to chronic venous stasis ulcerations to the left lower extremity. The overall appearance of the LLE is improved; however, the Lt great toe is waxy in appearance and worrisome for chronic venous stasis ulceration w/ osteomyelitis vs developing necrosis of the toe. We will continue IV fluids. (2) Cellulitis of left lower extremity Is this a current diagnosis for this admission?: Yes Plan: Improved appearance. Cellulitis is noted to the left lower extremity related to chronic venous stasis ulcerations. He is noted to have multiple shallow ulcerations to the left lower leg and foot and has small fluid-filled blisters to the left leg. Edema has improved. The Lt great toe is waxy in appearance, cool to touch, and has poor capillary refill. I am concerned about presenting necrosis and/or osteomyelitis related to a chronic wound on the medial portion of the PIP. Pt was unable to tolerate lying still for MRI. Venous Doppler ultrasound ruled out DVT. He is currently on vancomycin and Zosyn. We will keep leg elevated. Will consult surgery; appreciate Dr. Hidalgo' consultation and recommendations. (3) Acute renal failure Qualifiers: Acute renal failure type: unspecified Qualified Code(s): N17.9 - Acute kidney failure, unspecified Is this a current diagnosis for this admission?: Yes Plan: Slight improvement today (3.64--> 3.28--> 3.07) Likely prerenal secondary to intravascular volume depletion in the setting of sepsis. Baseline creatinine of 1.16. The patient is receiving IV fluid resuscitation per sepsis protocols. Will continue to monitor creatinine via serial BMPs. The patient will receive renally dosed vancomycin per pharmacy. Avoid all other nephrotoxic medications. (4) Acute respiratory failure with hypoxia Is this a current diagnosis for this admission?: Yes Plan: Improved; he is now maintaining oxygen saturations on supplemental oxygen via nasal canula. The patient was noted to be hypoxic with a saturation of 83% while on room air with tachypnea and tachycardia. Chest CT was obtained; no evidence of pneumonia on imagining. His acute worsening may have been positional (pt was supine for bath) or possibly aspiration as the patient was noted by nursing staff to have difficulty tolerating thin liquids. He will be supported with oxygen via nasal cannula per protocol, BiPAP nightly and as needed, duo nebs as needed, Mucinex twice daily. The patient will also be provided Lasix today for gentle diuresis secondary to volume overload. (5) Hypertension Is this a current diagnosis for this admission?: Yes Plan: Hypotensive at current secondary to sepsis. We will continue patient's home medications: Amlodipine and carvedilol with holding parameters. (6) BPH (benign prostatic hyperplasia) Is this a current diagnosis for this admission?: Yes Plan: We will continue home medications: Flomax and finasteride. (7) Venous stasis dermatitis of left lower extremity Is this a current diagnosis for this admission?: Yes Plan: Complicated by cellulitis. Plan as above. (8) Pneumonia Qualifiers: Pneumonia type: due to unspecified organism Qualified Code(s): J18.1 - Lobar pneumonia, unspecified organism Is this a current diagnosis for this admission?: Yes Plan: I do not believe that the pt has pneumonia. He will be continued on antibiotics , however, for treatment of his cellulitis. Chest CT demonstrated minimal right pleural effusion, mild subsegmental atelectasis, coronary artherosclerosis, and perinephric stranding. No evidence of pneumonia was seen. Chest x-ray demonstrated mild cardiomegaly and no acute processes. Likely, pneumonia was not visible secondary to dehydration in the setting of sepsis. (9) CHF (congestive heart failure) Qualifiers: Congestive heart failure chronicity: unspecified congestive heart failure chronicity Is this a current diagnosis for this admission?: Yes Plan: The patient is noted to have slight volume overload as noted by fine bibasilar crackles [place] [id number]. Echocardiogram pending. Will provide furosemide for gentle diuresis. - Time Time Spent with patient: 35 or more minutes Medications reviewed and adjusted accordingly: Yes
[2017-09-01] MEDS ORDERED: LIDOCAINE 1% INJ-PF (10 MG/ML) 30 ML SDV ONE (15:26)
[2017-09-01] MEDS: FUROSEMIDE INJ/PF 20 MG/2 ML SDV IV SCH (17:28)
--- NOTE | 2017-09-01 19:44 | Operative Report ---
Operative Report DATE OF SURGERY: 09/01/17 PREOPERATIVE DIAGNOSIS: Ischemic Left foot POSTOPERATIVE DIAGNOSIS: same OPERATION: Superficial Debridement Dorsal surface left foot SURGEON: TIMUR BUTLER ANESTHESIA: Local TISSUE REMOVED OR ALTERED: fluid, and skin COMPLICATIONS: none ESTIMATED BLOOD LOSS: scant INTRAOPERATIVE FINDINGS: see below PROCEDURE: Time out conducted; Dorsal aspect of the left foot was prepped and draped with Betadine. Skin was anesthetized with 1% lidocaine plain. The exfoliating skin over the dorsum of the left foot over the first and second metatarsals with a 15 blade. The dermis was intact. Multiple aspirations were made of the sub-cutaneous tissue with no release of pus. Specimen sent for Gram stain culture and sensitivity. Dressing applied to the left foot. Impression is progressive ischemia of the left foot an 87-year-old male with multiple comorbidities Recommendations: We will continue to discuss with patient's son, who is patient's healthcare power of bar turner goals of aggressiveness of care, and decision making and timing regarding left leg amputation.
--- NOTE | 2017-09-01 20:03 | CONSULTATION REPORT E ---
Consultation Report NAME: ASHLEY PIZARRO : 1930 AGE: 87Y DATE: 09/01/2017 ROOM: 325 A TO: TIMUR BUTLER M.D. FROM: Requesting Physician CHIEF COMPLAINT: Left foot pain, infection. REPORT OF CONSULTATION: The patient is an 87-year-old white male admitted to the hospital service 2 days ago because of fall, altered mental status, and generalized weakness. The working diagnosis was sepsis of unclear etiology. The patient was started on empiric antibiotic therapy. He had an element of renal failure, peripheral vascular disease as well. Unfortunately he has not improved clinically. The condition of his left foot in terms of chronic ulcers and more recently acute ischemic has progressed, surgery is consulted. PAST MEDICAL/SURGICAL HISTORY: Extensive, including coronary artery bypass grafting with vein, saphenous, harvested from the left lower extremity. He also has had right knee replacement. REVIEW OF SYSTEMS: Complete review of systems can be found in his records. According to the patient's son, the patient had been ambulating with a walker for the last 10 months following a hip repair back in September. He was developing some problems with ischemic changes to his left foot. However, since this hospitalization his clinical condition is seriously deteriorating. PHYSICAL EXAMINATION: The patient is examined on the third floor of [facility]. He is in moderate distress. He does not follow commands consistently. He has some facial grimace and irregularity. Exam focused on the lower extremities. The patient does have palpable femoral pulses bilaterally. Scar anterior aspect right knee consistent with total knee replacement; there is a saphenous vein harvest site scar left leg. There are multiple chronic ulcers to the left forefoot around the first, second metatarsal region. There is exfoliating skin and puffiness to the dorsum of the left foot with some dark-blue discoloration underneath. Toes show chronic fungal infection. LABORATORY PROFILE: Significant for a persisting white blood cell count of 16,000; hemoglobin of 9.4. Electrolytes show a bicarb of 15, BUN and creatinine of 23 and 3 respectively. IMPRESSION: Sepsis of uncertain etiology, however, suspect patient's ischemic left foot becoming increasingly problematic in this 87-year-old, full code, white male now at bedrest without significant clinical improvement over 48 hours at [facility] despite IV fluids, intravenous antibiotics, etcetera. RECOMMENDATIONS: 1. I spoke at length with the patient's son, who I know personally from previous encounters with patient's . The patient's overall condition has deteriorated. I am pessimistic about this patient's potential for rehabilitation given his advanced age and his failure to improve over the last few days. 2. As a bedside maneuver will debride and aspirate the surface of the dorsal aspect of the left foot, send material if available for culture, etcetera. This was done, see dictated note; results fairly unimpressive. 3. I believe the patient's progressive ischemic left foot is going to be his downfall this hospitalization. I explained this to the patient's son. Because of the patient's advanced age and poor likelihood of rehabilitation, he is not a candidate for limb salvage, therefore, a left above the knee amputation would be most appropriate operation. I discussed the fact that my colleague, surgicalist for the weekend, will be reassessing the patient in the next 12-18 hours to render an opinion regarding surgical option and timing thereof. DICTATING PHYSICIAN: TIMUR BUTLER M.D. [id number] PHY#: [id number] ID: [id number] JOB#: [id number] ACCT: [id number] cc:TIMUR BUTLER M.D. > MTDD
[2017-09-01] MEDS ORDERED: GLUCAGON,HUMAN RECOMB 1 MG INJ IM PRN (21:21)
[2017-09-01] MEDS ORDERED: DEXTROSE 50%-WATER SYRINGE 25 GM/50 ML DOSE IV PRN (21:21)
[2017-09-01] MEDS ORDERED: DEXTROSE 40% GEL 15 GM TUBE PO PRN (21:21)
[2017-09-01] MEDS ORDERED: DEXTROSE 40% GEL 15 GM TUBE X 2 PO PRN (21:21)
[2017-09-01] MEDS ORDERED: DEXTROSE 50%-WATER SYRINGE 12.5 GM/25 ML DOSE IV PRN (21:21)
[2017-09-01] MEDS: INSULIN LISPRO 100 UNIT/ML 3 ML VIAL SUBCUT PRN (23:32)
[2017-09-02] MEDS: IPRATROPIUM/ALBUTEROL 0.5-2.5 MG/3 ML AMPUL NEB SCH ×4 (00:38→23:52)
[2017-09-02] MEDS: PIPERACILLIN SODIUM/TAZOBACTAM 2.25 GM in NORMAL SALINE 50 ML IV SCH ×3 (01:28→16:55)
[2017-09-02] MEDS: INSULIN LISPRO 100 UNIT/ML 3 ML VIAL SUBCUT PRN (03:37)
[2017-09-02] MEDS ORDERED: INSULIN LISPRO 100 UNIT/ML 3 ML VIAL SUBCUT PRN (04:14)
[2017-09-02 05:10] LABS: HEMOGLOBIN 8.7 g/dL (13.5-17.0); MEAN CORPUSCULAR HEMOGLOBIN 31.1 pg (27.0-33.4); MEAN CORPUSCULAR HGB CONC 33.7 g/dL (32.0-36.0); MEAN CORPUSCULAR VOLUME 92 fl (80-97); PLATELET COUNT 192 10^3/uL (150-450); RED BLOOD COUNT 2.81 10^6/uL (4.35-5.55); WHITE BLOOD COUNT 18.8 10^3/uL (4.0-10.5)
[2017-09-02 05:33] LABS: ANION GAP 17 (5-19); BLOOD UREA NITROGEN 93 mg/dL (7-20); CALCIUM 8.3 mg/dL (8.4-10.2); CARBON DIOXIDE 15 mmol/L (22-30); CHLORIDE 120 mmol/L (98-107); GLUCOSE 178 mg/dL (75-110); POTASSIUM 3.1 mmol/L (3.6-5.0); SODIUM 152.4 mmol/L (137-145)
[2017-09-02] MEDS: FUROSEMIDE INJ/PF 20 MG/2 ML SDV IV SCH (05:44)
[2017-09-02] MEDS ORDERED: 1/2 NORMAL SALINE 1,000 ML IV PRN ×2 (07:34→16:29)
[2017-09-02] MEDS: POTASSI CL 20 MEQ/50 ML RIDER 20 MEQ/50 ML RTUPB IV SCH ×4 (08:22→14:18)
[2017-09-02] MEDS: FINASTERIDE 5 MG TABLET PO SCH (09:34)
[2017-09-02] MEDS: TAMSULOSIN HCL 0.4 MG CAP.SR.24H PO SCH (09:34)
[2017-09-02] MEDS: GUAIFENESIN 600 MG TABLET.SA PO SCH ×2 (09:34→21:56)
[2017-09-02] MEDS: ASPIRIN 81 MG TABLET, ENT COATED PO SCH (09:34)
[2017-09-02] MEDS: AMLODIPINE BESYLATE 5 MG TABLET PO SCH (09:34)
[2017-09-02] MEDS: CARVEDILOL 6.25 MG TABLET PO SCH ×2 (09:34→21:56)
[2017-09-02] MEDS: CETIRIZINE 10 MG TABLET PO SCH (09:34)
--- NOTE | 2017-09-02 10:11 | PDOC PROGRESS REPORT ---
Subjective Subjective:: patient not verbally responsive Reason For Visit: PNEUMONIA Physical Exam Vital Signs: Temp Pulse Resp BP Pulse Ox 98.7 F 108 H 18 159/68 H 98 09/02/17 07:20 09/02/17 08:28 09/02/17 08:28 09/02/17 07:20 09/02/17 08:28 Pulse Oximeter Continuous Start: 08/30/17 11: 40 Freq: RTQ4 Status: Active Document 09/02/17 08:28 TPO (Rec: 09/02/17 08:35 TPO [email or web address]) Pulse Oximetry Assessment Oxygen Saturation (92-100) 98 Oxygen Flow Rate (L/min) 2 Oxygen Delivery Method Nasal Cannula Fraction of Inspired Oxygen (FIO2) 28 Equipment Usage Equipment in Use Continuous SpO2 Machine # 8 Intake & Output 09/01/17 09/02/17 09/03/17 06:59 06:59 06:59 Intake Total 3210 3350 Output Total 1725 1650 Balance 1485 1700 Weight 88.6 kg 88.9 kg Extremities exam: PRESENT: other - left leg ischmia of the forefoot Results Laboratory Results: 09/02/17 04:58 09/02/17 04:58 09/02/17 09/02/17 04:58 04:58 WBC 18.8 H RBC 2.81 L Hgb 8.7 L Hct 26.0 L MCV 92 MCH 31.1 MCHC 33.7 RDW 19.0 H Plt Count 192 Sodium 152.4 H Potassium 3.1 L Chloride 120 H Carbon Dioxide 15 L Anion Gap 17 BUN 93 H Creatinine 2.53 H Est GFR ( Amer) 29 L Est GFR (Non-Af Amer) 24 L Glucose 178 H Calcium 8.3 L Impressions: Venous Doppler Study 08/30/17 00:00 IMPRESSION: NO EVIDENCE DVT OR SVT IN THE LEFT LEG. Chest X-Ray 08/30/17 08:03 IMPRESSION: No acute changes. 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 Mild subsegmental atelectasis. Coronary atherosclerosis. Perinephric stranding. Is there any clinical evidence pyelonephritis? Cholelithiasis. Assessment & Plan - Plan Summary Plan Summary: IV antibiotics may need below need amputation, based on patients family e's decision regarding extent of care and code status
[2017-09-02] MEDS: ENOXAPARIN SODIUM INJ 30 MG/0.3 ML DISP.SYRIN SUBCUT SCH (10:39)
[2017-09-02 11:24] LABS: ANION GAP 15 (5-19); BLOOD UREA NITROGEN 91 mg/dL (7-20); CALCIUM 8.3 mg/dL (8.4-10.2); CARBON DIOXIDE 19 mmol/L (22-30); CHLORIDE 120 mmol/L (98-107); GLUCOSE 177 mg/dL (75-110); POTASSIUM 3.1 mmol/L (3.6-5.0); SODIUM 154.3 mmol/L (137-145)
[2017-09-02] MEDS ORDERED: DEXTROSE 5%-WATER 1000 ML 1,000 ML IV PRN (16:33)
--- NOTE | 2017-09-02 16:50 | PDOC PROGRESS REPORT ---
Subjective Progress Note for:: 09/02/17 Subjective:: Pt is seen on morning rounds as a follow up of severe sepsis secondary to presumed pneumonia and cellulitis. The patient is resting in bed on supplemental oxygen via nasal cannula. He does wake briefly after a sternal rub and answers questions. He denies chest pain, difficulty breathing, and cough. He is asked about his advance care planning; he states that he is not discussed his end-of-life wishes with his family members. He does not respond to questions about whether or not he would want to be a DNR. I am uncertain if he did not understand the question or was unprepared to answer it. When asked who he would want to make decisions on his behalf when he cannot speak to us he points to his son, stating "Kevin". The patient's son is present for the exam. All questions and concerns were addressed. Reason For Visit: PNEUMONIA Physical Exam Vital Signs: Temp Pulse Resp BP Pulse Ox 98.7 F 98 18 158/64 H 96 09/02/17 12:01 09/02/17 15:56 09/02/17 15:56 09/02/17 12:01 09/02/17 15:56 Pulse Oximeter Continuous Start: 08/30/17 11: 40 Freq: RTQ4 Status: Active Document 09/02/17 15:56 [facility] [place] (Rec: 09/02/17 16:03 TPO [email or web address]) Pulse Oximetry Assessment Oxygen Saturation (92-100) 96 Oxygen Flow Rate (L/min) 2 Oxygen Delivery Method Nasal Cannula Fraction of Inspired Oxygen (FIO2) 28 Equipment Usage Equipment in Use Continuous SpO2 Machine # 8 Intake & Output 09/01/17 09/02/17 09/03/17 06:59 06:59 06:59 Intake Total 3210 3350 0 Output Total 1725 1650 1350 Balance 1485 1700 -1350 Weight 88.6 kg 88.9 kg General appearance: PRESENT: hard of hearing, mild distress, well-developed, well-nourished Head exam: PRESENT: atraumatic, normocephalic Eye exam: PRESENT: conjunctiva pink, EOMI, PERRLA. ABSENT: scleral icterus Ear exam: PRESENT: normal external ear exam Mouth exam: PRESENT: moist, tongue midline Neck exam: ABSENT: carotid bruit, JVD, lymphadenopathy, thyromegaly Respiratory exam: PRESENT: clear to auscultation katt, rhonchi - throughout, symmetrical, tachypnea. ABSENT: rales, wheezes Cardiovascular exam: PRESENT: RRR, other - +JVD. ABSENT: diastolic murmur, rubs , systolic murmur Pulses: PRESENT: normal dorsalis pedis pul Vascular exam: PRESENT: normal capillary refill GI/Abdominal exam: PRESENT: normal bowel sounds, soft. ABSENT: distended, guarding, mass, organolmegaly, rebound, tenderness Rectal exam: PRESENT: deferred Extremities exam: PRESENT: full ROM. ABSENT: calf tenderness, clubbing, pedal edema Neurological exam: PRESENT: oriented to person, oriented to place, other - Arousable; briefly answers questions. ABSENT: oriented to time, oriented to situation, motor sensory deficit Psychiatric exam: PRESENT: appropriate affect, normal mood. ABSENT: homicidal ideation, suicidal ideation Skin exam: PRESENT: dry, erythema - LLE; improved. Lt great toe not visualized; clean dry dressing in place, warm. ABSENT: cyanosis, intact, rash Results Laboratory Results: 09/02/17 04:58 09/02/17 10:55 09/02/17 09/02/17 09/02/17 04:58 04:58 10:55 WBC 18.8 H RBC 2.81 L Hgb 8.7 L Hct 26.0 L MCV 92 MCH 31.1 MCHC 33.7 RDW 19.0 H Plt Count 192 Sodium 152.4 H 154.3 H Potassium 3.1 L 3.1 L Chloride 120 H 120 H Carbon Dioxide 15 L 19 L Anion Gap 17 15 BUN 93 H 91 H Creatinine 2.53 H 2.41 H Est GFR ( Amer) 29 L 31 L Est GFR (Non-Af Amer) 24 L 26 L Glucose 178 H 177 H Calcium 8.3 L 8.3 L Impressions: Venous Doppler Study 08/30/17 00:00 IMPRESSION: NO EVIDENCE DVT OR SVT IN THE LEFT LEG. Chest X-Ray 08/30/17 08:03 IMPRESSION: No acute changes. 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 Mild subsegmental atelectasis. Coronary atherosclerosis. Perinephric stranding. Is there any clinical evidence pyelonephritis? Cholelithiasis. Assessment & Plan - Diagnosis (1) Sepsis Qualifiers: Sepsis type: methicillin susceptible Staphylococcus aureus Qualified Code(s ): A41.01 - Sepsis due to Methicillin susceptible Staphylococcus aureus Is this a current diagnosis for this admission?: Yes Plan: Slight improvement; blood pressures are stable and he is no longer tachycardic. The pt is arousable. The patient has been admitted to [facility] on continuous cardiac telemetry and pulse oximetry. Blood cultures: S. aureus Urine culture: Gram positive cocci The patient will continue on vancomycin and Zosyn for coverage of pneumonia and cellulitis secondary to chronic venous stasis ulcerations to the left lower extremity. The overall appearance of the LLE is improved; however, the Lt great toe is waxy in appearance and worrisome for developing necrosis of the toe. We will continue IV fluids. (2) Cellulitis of left lower extremity Is this a current diagnosis for this admission?: Yes Plan: Improved appearance. Cellulitis is noted to the left lower extremity related to chronic venous stasis ulcerations. He is noted to have multiple shallow ulcerations to the left lower leg and foot and has small fluid-filled blisters to the left leg. Edema has improved. The Lt great toe is waxy in appearance, cool to touch, and has poor capillary refill. I am concerned about presenting necrosis and/or osteomyelitis related to a chronic wound on the medial portion of the PIP. Pt was unable to tolerate lying still for MRI. Venous Doppler ultrasound ruled out DVT. He is currently on vancomycin and Zosyn. We will keep leg elevated. Will consult surgery; appreciate consultation and recommendations. -- Surgery recommends a BKA; family is hesitant to proceed with surgery at this time due to post-surgical quality of life concerns. (3) Acute renal failure Qualifiers: Acute renal failure type: unspecified Qualified Code(s): N17.9 - Acute kidney failure, unspecified Is this a current diagnosis for this admission?: Yes Plan: Improved (3.64--> 3.28--> 3.07--> 2.41) Likely prerenal secondary to intravascular volume depletion in the setting of sepsis. Baseline creatinine of 1.16. The patient is receiving IV fluid resuscitation per sepsis protocols. Will continue to monitor creatinine via serial BMPs. The patient will receive renally dosed vancomycin per pharmacy. Avoid all other nephrotoxic medications. (4) Acute respiratory failure with hypoxia Is this a current diagnosis for this admission?: Yes Plan: Improved; he is now maintaining oxygen saturations on supplemental oxygen via nasal canula. The patient was noted to be hypoxic with a saturation of 83% while on room air with tachypnea and tachycardia. Chest CT was obtained; no evidence of pneumonia on imagining. His acute worsening may have been positional (pt was supine for bath) or possibly aspiration as the patient was noted by nursing staff to have difficulty tolerating thin liquids. Will make NPO and place aspirations precautions. He will be supported with oxygen via nasal cannula per protocol, BiPAP nightly and as needed, duo nebs as needed, Mucinex twice daily. Continue Lasix for gentle diuresis secondary to volume overload. (5) Hypertension Is this a current diagnosis for this admission?: Yes Plan: Hypotensive at current secondary to sepsis. We will continue patient's home medications: Amlodipine and carvedilol with holding parameters. (6) BPH (benign prostatic hyperplasia) Is this a current diagnosis for this admission?: Yes Plan: We will continue home medications: Flomax and finasteride. (7) Venous stasis dermatitis of left lower extremity Is this a current diagnosis for this admission?: Yes Plan: Complicated by cellulitis. Plan as above. (8) Pneumonia Qualifiers: Pneumonia type: due to unspecified organism Qualified Code(s): J18.1 - Lobar pneumonia, unspecified organism Is this a current diagnosis for this admission?: Yes Plan: Sputum culture: gram positive cocci. He will be continued on Zosyn and Vancomycin. Chest CT demonstrated minimal right pleural effusion, mild subsegmental atelectasis, coronary artherosclerosis, and perinephric stranding. No evidence of pneumonia was seen. Chest x-ray demonstrated mild cardiomegaly and no acute processes. Likely, pneumonia was not visible secondary to dehydration in the setting of sepsis. (9) CHF (congestive heart failure) Qualifiers: Congestive heart failure chronicity: unspecified congestive heart failure chronicity Is this a current diagnosis for this admission?: Yes Plan: The patient is noted to have volume overload as noted by fine bibasilar crackles [place] [address]. Echocardiogram: LV EF 60% Will provide furosemide for gentle diuresis. Trend daily weights. (10) Hypernatremia Is this a current diagnosis for this admission?: Yes Plan: Secondary to poor p.o. intake and intractable losses. We will monitor with BMPs every 6. Patient is currently receiving D5-1/4NS at 100 ml/hr. (11) Goals of care, counseling/discussion Is this a current diagnosis for this admission?: Yes Plan: The patient's son, Kevin Chaves, has been identified by the patient as his proxy healthcare decision maker. At this time, the patient remains a full code. The son states that the patient's is not comfortable with hospice/comfort care measures as that would be "giving up." He intends to present DNR with continued antibiotic and supportive therapies, but withholding surgery, to allow the "natural course" as an option to the patient's this afternoon. - Time Time Spent with patient: 35 or more minutes Medications reviewed and adjusted accordingly: Yes
[2017-09-02] MEDS ORDERED: DEXTROSE 5%-1/4 NORMAL SALINE 1,000 ML IV ONE (17:30)
[2017-09-02] MEDS: ACETAMINOPHEN 325 MG SUPP.RECT PR PRN (17:46)
[2017-09-02 19:48] LABS: ANION GAP 15 (5-19); BLOOD UREA NITROGEN 87 mg/dL (7-20); CALCIUM 8.5 mg/dL (8.4-10.2); CARBON DIOXIDE 16 mmol/L (22-30); CHLORIDE 124 mmol/L (98-107); GLUCOSE 154 mg/dL (75-110); POTASSIUM 3.6 mmol/L (3.6-5.0)
[2017-09-02 19:49] LABS: ANION GAP 16 (5-19); BLOOD UREA NITROGEN 83 mg/dL (7-20); CALCIUM 8.4 mg/dL (8.4-10.2); CARBON DIOXIDE 18 mmol/L (22-30); CHLORIDE 123 mmol/L (98-107); GLUCOSE 158 mg/dL (75-110); POTASSIUM 3.4 mmol/L (3.6-5.0); SODIUM 156.7 mmol/L (137-145)
[2017-09-02] MEDS ORDERED: FUROSEMIDE INJ/PF 20 MG/2 ML SDV IV SCH (22:00)
[2017-09-03] MEDS ORDERED: VANCOMYCIN HCL 1,000 MG in DEXTROSE 5%-WATER 250 ML IV SCH ×2
[2017-09-03] MEDS: PIPERACILLIN SODIUM/TAZOBACTAM 2.25 GM in NORMAL SALINE 50 ML IV SCH (02:22)
[2017-09-03 06:47] LABS: HEMATOCRIT 25.4 % (37.9-51.0); HEMOGLOBIN 8.5 g/dL (13.5-17.0); MEAN CORPUSCULAR HEMOGLOBIN 31.1 pg (27.0-33.4); MEAN CORPUSCULAR HGB CONC 33.4 g/dL (32.0-36.0); MEAN CORPUSCULAR VOLUME 93 fl (80-97); PLATELET COUNT 176 10^3/uL (150-450); RED BLOOD COUNT 2.72 10^6/uL (4.35-5.55); RED CELL DISTRIBUTION WIDTH 18.5 % (11.5-14.0)
[2017-09-03 07:09] LABS: ALBUMIN 2.8 g/dL (3.5-5.0); ANION GAP 15 (5-19); BLOOD UREA NITROGEN 77 mg/dL (7-20); CALCIUM 8.7 mg/dL (8.4-10.2); CARBON DIOXIDE 19 mmol/L (22-30); CHLORIDE 123 mmol/L (98-107); GLUCOSE 200 mg/dL (75-110); SODIUM 156.5 mmol/L (137-145); TOTAL PROTEIN 5.9 g/dL (6.3-8.2)
[2017-09-03 07:10] LABS: ALANINE AMINOTRANSFERASE 67 U/L (21-72); ALKALINE PHOSPHATASE 106 U/L (38-126); ASPARTATE AMINO TRANSFERASE 65 U/L (17-59); BILIRUBIN,DIRECT 0.4 mg/dL (0.0-0.4)
[2017-09-03] MEDS ORDERED: POTASSI CL 20 MEQ/50 ML RIDER 20 MEQ/50 ML RTUPB IV SCH (07:23)
[2017-09-03] MEDS: IPRATROPIUM/ALBUTEROL 0.5-2.5 MG/3 ML AMPUL NEB SCH (08:00)
[2017-09-03 08:12] LABS: ABSOLUTE LYMPHOCYTES# (MANUAL) 1.3 10^3/uL (0.5-4.7); ABSOLUTE MONOCYTES # (MANUAL) 0.6 10^3/uL (0.1-1.4); ABSOLUTE NEUTROPHILS# (MANUAL) 17.1 10^3/uL (1.7-8.2); BAND NEUTROPHILS % (MANUAL) 3 % (3-5); BASOPHILS % (MANUAL) 0 % (0-2); EOSINOPHILS % (MANUAL) 0 % (0-6); LYMPHOCYTES % (MANUAL) 6 % (13-45); MONOCYTES % (MANUAL) 3 % (3-13); SEGMENTED NEUTROPHILS % (MAN) 87 % (42-78); TOTAL CELLS COUNTED 100
[2017-09-03 08:14] LABS: ANISOCYTOSIS 2+; BURR CELLS SLIGHT; HELMET CELLS SLIGHT; HYPOCHROMASIA 1+; OVALOCYTES SLIGHT; PLATELET COMMENT ADEQUATE; POIKILOCYTOSIS 3+; TARGET CELLS SLIGHT; TEAR DROP CELLS SLIGHT
[2017-09-03] MEDS: GUAIFENESIN 600 MG TABLET.SA PO SCH (09:03)
[2017-09-03] MEDS: ASPIRIN 81 MG TABLET, ENT COATED PO SCH (09:03)
[2017-09-03] MEDS: CARVEDILOL 6.25 MG TABLET PO SCH (09:03)
[2017-09-03] MEDS: FINASTERIDE 5 MG TABLET PO SCH (09:03)
[2017-09-03] MEDS: CETIRIZINE 10 MG TABLET PO SCH (09:03)
[2017-09-03] MEDS: AMLODIPINE BESYLATE 5 MG TABLET PO SCH (09:03)
[2017-09-03] MEDS: TAMSULOSIN HCL 0.4 MG CAP.SR.24H PO SCH (09:03)
[2017-09-03] MEDS ORDERED: MORPHINE SULFATE 60 MG/60 ML RTUINJ IV PRN (09:28)
--- NOTE | 2017-09-03 10:19 | PDOC PROGRESS REPORT ---
Subjective Progress Note for:: 09/03/17 Subjective:: Patient is unresponsive to painful stimuli Reason For Visit: PNEUMONIA Physical Exam Vital Signs: Temp Pulse Resp BP Pulse Ox 98.9 F 89 24 H 150/84 H 94 09/03/17 07:48 09/03/17 07:48 09/03/17 07:48 09/03/17 07:48 09/03/17 09:08 Pulse Oximeter Continuous Start: 08/30/17 11: 40 Freq: RTQ4 Status: Active Document 09/03/17 09:08 TPO (Rec: 09/03/17 09:09 TPO [email or web address]) Pulse Oximetry Assessment Oxygen Saturation (92-100) 94 Oxygen Flow Rate (L/min) 2 Oxygen Delivery Method Nasal Cannula Fraction of Inspired Oxygen (FIO2) 28 Equipment Usage Equipment in Use Continuous SpO2 Machine # 8 Intake & Output 09/02/17 09/03/17 09/04/17 06:59 06:59 06:59 Intake Total 3350 3391 Output Total 1650 2700 Balance 1700 691 Weight 88.9 kg 87.6 kg General appearance: PRESENT: no acute distress Eye exam: PRESENT: conjunctiva pink. ABSENT: scleral icterus Mouth exam: PRESENT: moist, tongue midline Neck exam: ABSENT: JVD Respiratory exam: PRESENT: rhonchi. ABSENT: rales, wheezes Cardiovascular exam: PRESENT: RRR. ABSENT: diastolic murmur, rubs, systolic murmur GI/Abdominal exam: PRESENT: normal bowel sounds, soft. ABSENT: distended, guarding, mass, organolmegaly, rebound, tenderness Extremities exam: PRESENT: other - Erythema around the great toe. ABSENT: calf tenderness, clubbing, pedal edema Neurological exam: PRESENT: altered Psychiatric exam: PRESENT: flat affect Skin exam: PRESENT: other - Dusky left great toe and first MTP area. Results Laboratory Results: 09/03/17 05:25 09/03/17 05:25 09/02/17 09/02/17 09/02/17 10:55 17:17 19:05 WBC RBC Hgb Hct MCV MCH MCHC RDW Plt Count Seg Neutrophils % Lymphocytes % Monocytes % Eosinophils % Basophils % Absolute Neutrophils Absolute Lymphocytes Absolute Monocytes Absolute Eosinophils Absolute Basophils Sodium 154.3 H 155.0 H 156.7 H Potassium 3.1 L 3.6 3.4 L Chloride 120 H 124 H 123 H Carbon Dioxide 19 L 16 L 18 L Anion Gap 15 15 16 BUN 91 H 87 H 83 H Creatinine 2.41 H 2.28 H 2.31 H Est GFR ( Amer) 31 L 33 L 32 L Est GFR (Non-Af Amer) 26 L 27 L 27 L Glucose 177 H 154 H 158 H Calcium 8.3 L 8.5 8.4 Total Bilirubin AST ALT Alkaline Phosphatase Total Protein Albumin 09/03/17 09/03/17 05:25 05:25 WBC 19.0 H RBC 2.72 L Hgb 8.5 L Hct 25.4 L MCV 93 MCH 31.1 MCHC 33.4 RDW 18.5 H Plt Count 176 Seg Neutrophils % Not Reportable Lymphocytes % Not Reportable Monocytes % Not Reportable Eosinophils % Not Reportable Basophils % Not Reportable Absolute Neutrophils Not Reportable Absolute Lymphocytes Not Reportable Absolute Monocytes Not Reportable Absolute Eosinophils Not Reportable Absolute Basophils Not Reportable Sodium 156.5 H Potassium 3.0 L* Chloride 123 H Carbon Dioxide 19 L Anion Gap 15 BUN 77 H Creatinine 2.06 H Est GFR ( Amer) 37 L Est GFR (Non-Af Amer) 31 L Glucose 200 H Calcium 8.7 Total Bilirubin 1.0 AST 65 H ALT 67 Alkaline Phosphatase 106 Total Protein 5.9 L Albumin 2.8 L Impressions: Venous Doppler Study 08/30/17 00:00 IMPRESSION: NO EVIDENCE DVT OR SVT IN THE LEFT LEG. Chest X-Ray 08/30/17 08:03 IMPRESSION: No acute changes. 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 Mild subsegmental atelectasis. Coronary atherosclerosis. Perinephric stranding. Is there any clinical evidence pyelonephritis? Cholelithiasis. Assessment & Plan - Diagnosis (1) Sepsis Qualifiers: Sepsis type: methicillin susceptible Staphylococcus aureus Qualified Code(s ): A41.01 - Sepsis due to Methicillin susceptible Staphylococcus aureus Is this a current diagnosis for this admission?: Yes Plan: Most likely combination of pneumonia and cellulitis of the foot and probable osteomyelitis. The case was discussed with the son and the . We have agreed to change the patient comfort care and just to comfort measures. All of medications will be stopped except for the morphine. (2) Pneumonia Qualifiers: Pneumonia type: due to unspecified organism Qualified Code(s): J18.1 - Lobar pneumonia, unspecified organism Is this a current diagnosis for this admission?: Yes Plan: Comfort Care only (3) Venous stasis dermatitis of left lower extremity Is this a current diagnosis for this admission?: Yes (4) Acute respiratory failure with hypoxia Is this a current diagnosis for this admission?: Yes (5) BPH (benign prostatic hyperplasia) Is this a current diagnosis for this admission?: Yes (6) CHF (congestive heart failure) Qualifiers: Congestive heart failure chronicity: unspecified congestive heart failure chronicity Is this a current diagnosis for this admission?: Yes (7) Hypernatremia Is this a current diagnosis for this admission?: Yes (8) Hypertension Is this a current diagnosis for this admission?: Yes (9) Acute renal failure Qualifiers: Acute renal failure type: unspecified Qualified Code(s): N17.9 - Acute kidney failure, unspecified Is this a current diagnosis for this admission?: Yes - Time Time Spent with patient: 25-34 minutes - Plan Summary Plan Summary: We will consult hospice and made comfort care only.
--- NOTE | 2017-09-03 14:07 | PDOC PROGRESS REPORT ---
Subjective Progress Note for:: 09/03/17 Subjective:: Patient not verbally communicating Reason For Visit: PNEUMONIA Physical Exam Vital Signs: Temp Pulse Resp BP Pulse Ox 98.9 F 89 24 H 150/84 H 94 09/03/17 07:48 09/03/17 07:48 09/03/17 07:48 09/03/17 07:48 09/03/17 12:06 Pulse Oximeter Continuous Start: 08/30/17 11: 40 Freq: RTQ4 Status: Active Document 09/03/17 12:06 TPO (Rec: 09/03/17 12:07 TPO [email or web address]) Pulse Oximetry Assessment Oxygen Saturation (92-100) 94 Oxygen Flow Rate (L/min) 2 Oxygen Delivery Method Nasal Cannula Fraction of Inspired Oxygen (FIO2) 28 Equipment Usage Equipment in Use Continuous SpO2 Machine # 8 Intake & Output 09/02/17 09/03/17 09/04/17 06:59 06:59 06:59 Intake Total 3350 3391 Output Total 1650 2700 Balance 1700 691 Weight 88.9 kg 87.6 kg Extremities exam: PRESENT: other - Left foot Ischemic changes - slightly improved No signs of any infection Conservative managemnt Results Laboratory Results: 09/03/17 05:25 09/03/17 05:25 09/02/17 09/02/17 09/03/17 17:17 19:05 05:25 WBC 19.0 H RBC 2.72 L Hgb 8.5 L Hct 25.4 L MCV 93 MCH 31.1 MCHC 33.4 RDW 18.5 H Plt Count 176 Seg Neutrophils % Not Reportable Lymphocytes % Not Reportable Monocytes % Not Reportable Eosinophils % Not Reportable Basophils % Not Reportable Absolute Neutrophils Not Reportable Absolute Lymphocytes Not Reportable Absolute Monocytes Not Reportable Absolute Eosinophils Not Reportable Absolute Basophils Not Reportable Sodium 155.0 H 156.7 H Potassium 3.6 3.4 L Chloride 124 H 123 H Carbon Dioxide 16 L 18 L Anion Gap 15 16 BUN 87 H 83 H Creatinine 2.28 H 2.31 H Est GFR ( Amer) 33 L 32 L Est GFR (Non-Af Amer) 27 L 27 L Glucose 154 H 158 H Calcium 8.5 8.4 Total Bilirubin AST ALT Alkaline Phosphatase Total Protein Albumin 09/03/17 05:25 WBC RBC Hgb Hct MCV MCH MCHC RDW Plt Count Seg Neutrophils % Lymphocytes % Monocytes % Eosinophils % Basophils % Absolute Neutrophils Absolute Lymphocytes Absolute Monocytes Absolute Eosinophils Absolute Basophils Sodium 156.5 H Potassium 3.0 L* Chloride 123 H Carbon Dioxide 19 L Anion Gap 15 BUN 77 H Creatinine 2.06 H Est GFR ( Amer) 37 L Est GFR (Non-Af Amer) 31 L Glucose 200 H Calcium 8.7 Total Bilirubin 1.0 AST 65 H ALT 67 Alkaline Phosphatase 106 Total Protein 5.9 L Albumin 2.8 L Impressions: Venous Doppler Study 08/30/17 00:00 IMPRESSION: NO EVIDENCE DVT OR SVT IN THE LEFT LEG. Chest X-Ray 08/30/17 08:03 IMPRESSION: No acute changes. 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 Mild subsegmental atelectasis. Coronary atherosclerosis. Perinephric stranding. Is there any clinical evidence pyelonephritis? Cholelithiasis.
[2017-09-04] MEDS ORDERED: NORMAL SALINE 1000 ML 1,000 ML IV PRN (02:02)
[2017-09-04] MEDS ORDERED: NALOXONE HCL INJ/PF 0.4 MG/1 ML SDV IV PRN (02:03)
[2017-09-04 07:56] VITALS: BP 153/71
--- NOTE | 2017-09-04 12:38 | PDOC PROGRESS REPORT ---
Subjective Progress Note for:: 09/04/17 Subjective:: Patient is unresponsive to painful stimuli Reason For Visit: PNEUMONIA Physical Exam Vital Signs: Temp Pulse Resp BP Pulse Ox 98.3 F 87 18 153/71 H 96 09/04/17 07:42 09/04/17 07:42 09/04/17 07:42 09/04/17 07:42 09/04/17 07:42 Pulse Oximeter Continuous Start: 08/30/17 11: 40 Freq: RTQ4 Status: Complete Document 09/03/17 16:38 TPO (Rec: 09/03/17 16:39 TPO [email or web address]) Pulse Oximetry Assessment Oxygen Saturation (92-100) 96 Oxygen Flow Rate (L/min) 2 Oxygen Delivery Method Nasal Cannula Fraction of Inspired Oxygen (FIO2) 28 Equipment Usage Equipment in Use Continuous SpO2 Machine # 8 Intake & Output 09/03/17 09/04/17 09/05/17 06:59 06:59 06:59 Intake Total 3391 589 Output Total 2700 2150 Balance 691 -1561 Weight 87.6 kg General appearance: PRESENT: no acute distress Eye exam: PRESENT: conjunctiva pink. ABSENT: scleral icterus Mouth exam: PRESENT: dry mucosa Neck exam: ABSENT: JVD Respiratory exam: PRESENT: clear to auscultation katt. ABSENT: rales, rhonchi, wheezes Cardiovascular exam: PRESENT: RRR. ABSENT: diastolic murmur, rubs, systolic murmur GI/Abdominal exam: PRESENT: normal bowel sounds, soft. ABSENT: distended, guarding, mass, organolmegaly, rebound, tenderness Extremities exam: PRESENT: other - Dressing in place on the foot. ABSENT: calf tenderness, clubbing, pedal edema Neurological exam: PRESENT: altered Skin exam: PRESENT: other - Dressing in place on the foot Results Laboratory Results: 09/03/17 05:25 09/03/17 05:25 Impressions: Venous Doppler Study 08/30/17 00:00 IMPRESSION: NO EVIDENCE DVT OR SVT IN THE LEFT LEG. Chest X-Ray 08/30/17 08:03 IMPRESSION: No acute changes. 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 Mild subsegmental atelectasis. Coronary atherosclerosis. Perinephric stranding. Is there any clinical evidence pyelonephritis? Cholelithiasis. Assessment & Plan - Diagnosis (1) Sepsis Qualifiers: Sepsis type: methicillin susceptible Staphylococcus aureus Qualified Code(s ): A41.01 - Sepsis due to Methicillin susceptible Staphylococcus aureus Is this a current diagnosis for this admission?: Yes Plan: Most likely combination of pneumonia and cellulitis of the foot and probable osteomyelitis. Continue with comfort care only (2) Pneumonia Qualifiers: Pneumonia type: due to unspecified organism Qualified Code(s): J18.1 - Lobar pneumonia, unspecified organism Is this a current diagnosis for this admission?: Yes Plan: Comfort Care only (3) Venous stasis dermatitis of left lower extremity Is this a current diagnosis for this admission?: Yes (4) Acute respiratory failure with hypoxia Is this a current diagnosis for this admission?: Yes (5) BPH (benign prostatic hyperplasia) Is this a current diagnosis for this admission?: Yes (6) CHF (congestive heart failure) Qualifiers: Congestive heart failure chronicity: unspecified congestive heart failure chronicity Is this a current diagnosis for this admission?: Yes (7) Hypernatremia Is this a current diagnosis for this admission?: Yes (8) Hypertension Is this a current diagnosis for this admission?: Yes (9) Acute renal failure Qualifiers: Acute renal failure type: unspecified Qualified Code(s): N17.9 - Acute kidney failure, unspecified Is this a current diagnosis for this admission?: Yes - Time Time Spent with patient: 25-34 minutes - Inpatient Certification Medical Necessity: Need Close Monitoring Due to Risk of Patient Decompensation - Plan Summary Plan Summary: The patient's is very debilitated and she will be unable to care for him at home with hospice
--- NOTE | 2017-09-04 14:31 | PDOC PROGRESS REPORT ---
Subjective Progress Note for:: 09/04/17 Subjective:: Patient not verbally responsive Reason For Visit: PNEUMONIA Physical Exam Vital Signs: Temp Pulse Resp BP Pulse Ox 98.3 F 87 18 153/71 H 96 09/04/17 07:42 09/04/17 07:42 09/04/17 07:42 09/04/17 07:42 09/04/17 07:42 Pulse Oximeter Continuous Start: 08/30/17 11: 40 Freq: RTQ4 Status: Complete Document 09/03/17 16:38 TPO (Rec: 09/03/17 16:39 TPO [email or web address]) Pulse Oximetry Assessment Oxygen Saturation (92-100) 96 Oxygen Flow Rate (L/min) 2 Oxygen Delivery Method Nasal Cannula Fraction of Inspired Oxygen (FIO2) 28 Equipment Usage Equipment in Use Continuous SpO2 Machine # 8 Intake & Output 09/03/17 09/04/17 09/05/17 06:59 06:59 06:59 Intake Total 3391 589 0 Output Total 2700 2150 500 Balance 691 -1561 -500 Weight 87.6 kg Extremities exam: PRESENT: other - Left foot - ischemia , with ischemic ulcers , no progression Results Laboratory Results: 09/03/17 05:25 09/03/17 05:25 Impressions: Venous Doppler Study 08/30/17 00:00 IMPRESSION: NO EVIDENCE DVT OR SVT IN THE LEFT LEG. Chest X-Ray 08/30/17 08:03 IMPRESSION: No acute changes. 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 Mild subsegmental atelectasis. Coronary atherosclerosis. Perinephric stranding. Is there any clinical evidence pyelonephritis? Cholelithiasis. Assessment & Plan - Plan Summary Plan Summary: Ischemic left foot d/w family member Patient on comfort care dry dressings to left foot Follow up PRN
--- NOTE | 2017-09-05 15:43 | DEATH SUMMARY E ---
Summary NAME: ASHLEY PIZARRO : 1930 AGE: 87Y ADMITTED: 08/30/2017 :08/16/2017 TIME OF : 755 FINAL DIAGNOSES: 1. Staphylococcus aureus osteomyelitis. 2. Staphylococcus aureus bacteremia secondary to #1. 3. Sepsis secondary to #1 and #2. 3. Pneumonia. 4. Venous stasis dermatitis. 5. Xyfkq-[id number]-vngphmb hypoxemic respiratory failure. 6. Benign prostatic hyperplasia. 7. Diastolic congestive heart failure. 8. Hypernatremia. 9. Hypertension. 10. Acute renal failure. DIAGNOSTICS: Lab values are as follows: Hematology obtained on 09/03/2017: WBCs are 19.0, hemoglobin is 8.5, hematocrit is 25.4, platelet count is 176,000. Coagulation obtained on 08/30/2017: PT is 17.2, INR is 1.32. ABG obtained on 08/31/2017: Her pH is 7.38, pCO2 is 29.7, pO2 is 220. Chemistry obtained on 09/03/2017: Sodium is 156, potassium 3.7, chloride is 123, carbon dioxide 19, BUN 77, creatinine 2.06, glucose 200, calcium is 8.7, bilirubin is 1, AST 65, ALT is 67, alk phos 106, total protein 5.9, albumin 2.8. Urinalysis obtained on 08/30/2017: Color dark yellow, appearance slightly cloudy, pH 5.0, specific gravity 1.014, protein 100, glucose negative, ketones negative, occult blood negative, nitrate negative, bilirubin negative, urobilinogen negative, leukocyte esterase negative, WBC 1, RBC 0. Microbiology: Blood cultures obtained on 08/30/2017 reveals Staph aureus. Sputum culture obtained on 08/30/2017 is pending. Foot culture obtained on 08/30/2017 reveals Staph aureus. Urine culture obtained on 08/30/2017 reveals no growth. Venous Doppler study obtained on 08/30/2017 reveals no evidence of DVT or SVT in either leg. Chest x-ray obtained on 08/30/2017 reveals no acute changes, mild cardiomegaly, old sternotomy. Chest CT obtained on 08/31/2017 reveals minimal right pleural effusion with mild segmental atelectasis, coronary arteriosclerosis. EKG obtained on 08/30/2017 reveals sinus rhythm with a right bundle. HISTORY OF PRESENT ILLNESS: The patient is an 87-year-old male with a past medical history of hypertension and benign prostatic hyperplasia that presented to the emergency department with a chief complaint of confusion and fever. The patient's family was unable to awaken him so they notified EMS. According to the patient's son, the patient has been having generalized weakness for 3 days and also had some blood work done at his hematologists office to evaluate for his anemia. The patient's son reports that the patient became more confused and forgetful than before, and the morning of presentation found him to be difficult to arouse, febrile with labored respirations. On retrospect, the patient's son believes that the patient may have had a productive cough for about 1 week. Upon presentation to the emergency department, the patient was found to be hypoxic with a temperature of 102. He was tachycardiac, tachypneic, white count of 25, hemoglobin of 9.5, creatinine 3.6 and the patient was referred to the hospitalist for admission and management. HOSPITAL COURSE: The patient was admitted to [facility]. The patient was aggressively hydrated and the patient's creatinine still remained above 2. The patient's potassium was corrected and the patient was found to be septic with a white count of greater than 25. The patient was placed on broad spectrum coverage. It appears that the patient does have an osteo which revealed staph and was bacteremic from this. However, given the patient's poor response to treatment, the family elected to proceed with comfort measures given the patient has comorbidities. The patient was placed on comfort measures including [employer] and the patient comfortably . Time spent on this summary is 20 minutes. DICTATING PHYSICIAN: JENS VILLELA NP [id number] PHY#: [id number] ID: [id number] JOB#: [id number] ACCT: [id number] cc:JENS VILLELA NP > MTDD
== END 2017-09-05 07:56 | DRG 853 ==
LOC: ER 08:01 → EH 09:52 → 3W 11:28
PROVIDERS: ADMIT Internal Medicine; ATTEND Internal Medicine
PROC: 3E0F73Z Introduction of Anti-inflammatory into Respiratory Tract, Via Natural or Artificial Opening (ICD-10-PCS; 2017-08-30)
PROC: 5A09357 Assistance with Respiratory Ventilation, Less than 24 Consecutive Hours, Continuous Positive Airway Pressure (ICD-10-PCS; 2017-08-31)
PROC: 0JBR0ZZ Excision of Left Foot Subcutaneous Tissue and Fascia, Open Approach (ICD-10-PCS; principal; 2017-09-01)
DX: A41.01 Sepsis due to Methicillin susceptible Staphylococcus aureus (principal); J96.21 Acute and chronic respiratory failure with hypoxia; J18.1 Lobar pneumonia, unspecified organism; I50.30 Unspecified diastolic (congestive) heart failure; E87.0 Hyperosmolality and hypernatremia; N17.9 Acute kidney failure, unspecified; L03.116 Cellulitis of left lower limb; I87.2 Venous insufficiency (chronic) (peripheral); N40.0 Benign prostatic hyperplasia without lower urinary tract symptoms; I11.0 Hypertensive heart disease with heart failure; L97.529 Non-pressure chronic ulcer of other part of left foot with unspecified severity; D64.9 Anemia, unspecified; I25.10 Atherosclerotic heart disease of native coronary artery without angina pectoris; Z96.651 Presence of right artificial knee joint; G62.9 Polyneuropathy, unspecified; K80.20 Calculus of gallbladder without cholecystitis without obstruction; Z95.1 Presence of aortocoronary bypass graft; M19.90 Unspecified osteoarthritis, unspecified site; Z87.891 Personal history of nicotine dependence; Z79.899 Other long term (current) drug therapy; Z79.82 Long term (current) use of aspirin
CPT/HCPCS: 36415; 36600; 71010; 71250; 80048; 80053; 81001; 82803; 82962; 83605; 83880; 85025; 85027; 85610; 86850; 86900; 86901; 87040; 87070; 87075; 87077; 87086; 87186; 87205; 93005; 93010; 93306; 93971; 94640; 94660; 94762; 96361; 96365; 99285; G8996-GN; G8997-GN; G8998-GN; J0696; J1630; J1650; J1940; J2270; J2543; J3370; J3480; J3490; J7030; J7060; J7620